=== PATIENT | male | born 1955 | race Hispanic/Latino ===

== ENCOUNTER → 2024-04-13 | Outpatient (CLI) | payer OTHER | END | disposition home or self-care (01) | LOC: SHCH 14:15 | PROVIDERS: ATTEND Student in an Organized Health Care Education/Training Program | DX: I34.81 Nonrheumatic mitral (valve) annulus calcification (principal); I10 Essential (primary) hypertension | CPT/HCPCS: 93306 ==

== ENCOUNTER → 2024-04-26 | Outpatient (CLI) | payer OTHER ==
[~2024-04-26] MED LIST: PERFLUTREN PROTEIN-A MICROSPHR 0.22 MG/ML VIAL IV ONE
== END | disposition home or self-care (01) ==
LOC: RAH 12:04
PROVIDERS: ATTEND Student in an Organized Health Care Education/Training Program
DX: R06.00 Dyspnea, unspecified (principal)
CPT/HCPCS: C8924; Q9956

== ENCOUNTER 2025-03-06 20:15 | Inpatient (IN) | payer OTHER ==
[~2025-03-06] VITALS: Ht 177.8 cm; Wt 107.6 kg
[~2025-03-06 20:15] MED LIST changes: +ASCO100031 PO; +ASPI-1197 PO; +ATOR20TA65 PO; +EMPA10TA PO; +HUMLIS7525 SQ; +MAGN250T10 PO; +METO25TA3 PO; -PERFLUTREN PROTEIN-A MICROSPHR 0.22 MG/ML VIAL IV ONE; +SACU1TAB PO; +THEO400T3 PO
[2025-03-06 20:32] LABS: BASOPHILS # (AUTO) 0.06 K/uL (0.00-0.20); BASOPHILS % (AUTO) 0.6 % (0.0-5.0); EOSINOPHILS # (AUTO) 0.26 K/uL (0.00-0.70); EOSINOPHILS % (AUTO) 2.6 % (0.0-8.0); HEMATOCRIT 41.6 % (42-54); IMMATURE GRANULOCYTE ABSOLUTE 0.04 K/uL (0-1); LYMPHOCYTES # (AUTO) 1.9 K/uL (1.0-4.8); LYMPHOCYTES % (AUTO) 18.4 % (21.0-51.0); MEAN CORPUSCULAR HEMOGLOBIN 29.2 pg (27.0-33.0); MEAN CORPUSCULAR HGB CONC 34.6 g/dL (32.0-36.0); MEAN CORPUSCULAR VOLUME 84.4 fL (79-99); MONOCYTES # (AUTO) 0.8 K/uL (0.1-1.0); MONOCYTES % (AUTO) 7.4 % (3.0-13.0); NEUTROPHILS # (AUTO) 7.1 K/uL (1.8-7.7); NEUTROPHILS % (AUTO) 70.6 % (40.0-77.0); PLATELET COUNT (AUTO) 178 K/uL (130-400); RED BLOOD CELL COUNT(AUTO) 4.93 MIL/uL (4.50-6.20); WHITE BLOOD COUNT (AUTO) 10.1 K/uL (4.8-10.8)
[2025-03-06 20:44] LABS: CREATININE 1.7 mg/dL (0.5-1.3); POTASSIUM 4.7 mmol/L (3.5-5.1)
[2025-03-06 20:53] LABS: INR 1.01 (0.85-1.15); PROTHROMBIN TIME 10.7 SEC (9.6-11.6)
[2025-03-06 20:54] LABS: PARTIAL THROMBOPLASTIN TIME 25.2 SEC (26.3-35.5)
--- NOTE | 2025-03-06 21:08 | HMCIMG ---
CHEST 1VW HISTORY: Chest pain COMPARISON: 03/05/2025 FINDINGS: A frontal projection of the chest was obtained. Mild bilateral pulmonary infiltrates are seen may be related to mild pulmonary vascular congestion with possible superimposed pneumonitis. Poststernotomy changes are seen. The heart is enlarged. Degenerative changes of the thoracolumbar spine are present. All the lines and tubes are again seen in place. Pacemaker is seen entering from the left. No fracture is seen LEFT clavicle. IMPRESSION: 1. Mild bilateral pulmonary infiltrates are seen may be related to mild pulmonary vascular congestion with possible superimposed pneumonitis.
--- NOTE | 2025-03-06 21:09 | HMCIMG ---
CT HEAD/BRAIN W/O CONTRAST HISTORY: Dizziness COMPARISON: None TECHNIQUE: Multiple sequential axial images of the head were obtained from the base of the skull through vertex. Patient was not given contrast through intravenous route. FINDINGS: The ventricles and extraventricular CSF spaces are nondilated for patient's age. There is no midline shift, mass effect or herniation. No acute intracranial bleed is seen. Visualized portion of the paranasal sinuses are grossly within normal limits. IMPRESSION: 1. No acute intracranial bleed is seen. CT was performed with one or more following dose reduction techniques: automated exposure control, adjustment of the mA and kv according to patient's size, or use of a iterative reconstruction technique.
[2025-03-06 21:18] LABS: B-TYPE NATRIURETIC PEPTIDE 693 pg/mL (0-100)
--- NOTE | 2025-03-06 21:30 | NUR ---
REPORT GIVEN TO BAN BENITO
--- NOTE | 2025-03-06 21:58 | ERN ---
ED Note History of Present Illness Stated Complaint: C/O SOB,CP, DIZZINESS,HEADACHE, COUGH,BODYACHES Chief Complaint: Shortness of Breath Time Seen by MD: 20:19 Time Seen by Midlevel: 20:19 Dictation: The patient is a 69-year-old male with a history of CAD, ischemic cardiomyopathy, CHF, hyperlipidemia, hypertension, CABG who presents to the emergency department with complaints of chest pain, shortness of breath, dizziness onset today. Patient reports pain is intermediate and worsened with exertion. Patient reports pressure-like pain lasting about 10-15 minutes. Patient reports nonproductive cough but denies any fevers, sore throat or nasal congestion. Allergies: Coded Allergies: No Known Allergies (Verified Allergy, Unknown, 04/26/24) Home Meds Active Scripts Metoprolol Succinate (Toprol Xl) 25 Mg Tab.er.24h, 25 MG PO DAILY, #30 TAB Prov:ROSIO RUSHING MD 02/27/25 Reported Medications Sacubitril/Valsartan (Entresto 24 mg-26 mg Tablet) 24 Mg-26 Mg Tablet, 1 EACH PO BID, TAB 03/05/25 Magnesium Oxide (Magnesium) 250 Mg Tablet, 250 MG PO DAILY, TAB 11/22/24 Ascorbic Acid (Vitamin C) 1,000 Mg Tablet, 1000 MG PO DAILY, TAB 11/22/24 Aspirin (Aspirin) 81 Mg Tab.chew, 81 MG PO DAILY, TAB.CHEW 11/22/24 Empagliflozin (Jardiance) 10 Mg Tablet, 10 MG PO DAILY, TAB 11/22/24 Theophylline Anhydrous (Theophylline) 400 Mg Tablet.er, 400 MG PO DAILY, TAB 11/22/24 Atorvastatin Calcium (Atorvastatin Calcium) 20 Mg Tablet, 20 MG PO HS, TAB 11/22/24 Insulin NPL/Insulin Lispro (Humalog Mix 75/25) 100 Unit/Ml (75-25) Inj, 40 UNITS SQ BID, ML 11/22/24 Discontinued Reported Medications Metoprolol Succinate (Metoprolol Succinate) 25 Mg Tab.er.24h, 1 TAB PO DAILY 03/05/25 Sertraline HCl (Sertraline HCl) 25 Mg Tablet, 1 TAB PO DAILY for 30 Days, #30 TAB 0 Refills 02/21/25 Duloxetine HCl (Duloxetine HCl) 30 Mg Capsule.dr, 1 CAP PO HS for 30 Days, #30 CAP 0 Refills 02/21/25 Levocetirizine Dihydrochloride (Levocetirizine Dihydrochloride) 5 Mg Tablet, 1 TAB PO HS for 30 Days, #30 TAB 0 Refills 02/21/25 Clopidogrel Bisulfate (Clopidogrel) 75 Mg Tablet, 75 MG PO DAILY, TAB 11/22/24 Omeprazole (Omeprazole) 20 Mg Tab.rap.dr, 20 MG PO BID 11/22/24 Sacubitril/Valsartan (Entresto 97 mg-103 mg Tablet) 97 Mg-103 Mg Tablet, 1 TAB PO BID for 30 Days, #60 TAB 0 Refills 11/22/24 Spironolactone (Spironolactone) 25 Mg Tablet, 1 TAB PO DAILY for 30 Days, #30 TAB 0 Refills 02/21/25 Metolazone (Metolazone) 2.5 Mg Tablet, 1 TAB PO QMOWEFR for 30 Days, #30 TAB 0 Refills 02/21/25 Bumetanide (Bumex) 1 Mg Tab, 1 MG PO BID, TAB 01/26/25 Celecoxib (Celecoxib) 200 Mg Capsule, 1 TAB PO BID 01/01/25 Carvedilol (Carvedilol) 25 Mg Tablet, 1 TAB PO BID 01/01/25 Past Medical History Past Medical History: Diabetes-Type II, High Cholesterol, Heart Disease, Hypertension, Other Surgical History: CABG, Other Surgical History Other: CARDIAC STENTS Family History: Negative RN Note Reviewed/Agreed w/PFSH: Yes Review of System Dictation Constitutional: Negative for fever,chills, and weight loss Eyes: Negative for injury, pain,redness, and discharge ENT: Negative for injury,pain or swelling Cardiovascular: Negative for palpitations, and edema positive for chest pain Respiratory: Negative for wheezing, positive for shortness of breath, cough Abdomen/GI: Negative for abdominal pain, nausea, vomiting, diarrhea, and constipation Back: Negative for injury and pain : Negative for injury, bleeding and discharge MS/Extremity: Negative for injury and deformity Skin: Negative for rash, and discoloration Neuro: Negative for headache, weakness, numbness, tingling, and seizure positive for dizziness Psych: Negative for suicide ideation, homicidal ideation, and hallucinations Initial Vital Sign VS Vital Signs Date Time Temp Pulse Resp B/P (MAP) Pulse Ox O2 Delivery O2 Flow Rate FiO2 03/06/25 20:17 97.0 80 20 118/71 97 Room Air 03/06/25 20:35 0 21 Physical Exam Dictation Vital Signs reviewed General Appearance: Alert, oriented x 3, no acute distress, well developed, nourished. Head and Face: non-traumatic. Eyes: PERRL, pink conjunctivas, eyelid no trauma, anterior chamber with arcus senilis. Ears: Pinnas intact and no signs of trauma or erythema ear canals clear and no discharge TM no erythema Nose: No discharge, no bleeding. Oropharynx: Mouth normal, tongue pink. pharynx clear,no erythema, tonsils no exudates, no abscesses noted, mucous membrane moist Neck: Supple, non-tender, no thyromegaly, no masses, no JVD, no bruits Breast:Deferred Chest:No tenderness, no crepitus, no paradoxical movement, no retractions Lungs:Clear, well-ventilated, symmetric, no rales, no wheezing, no rhonchi, no stridor, good breath sounds bilaterally Heart: Regular rate, regular rhythm, no murmur, no gallops Vascular: no peripheral edema, Abdomen: Soft, positive bowel sounds, nondistended, no guarding, nontender, no rebound, no masses no hepatomegaly, no splenomegaly, no Burrell's sign, no hernias. Rectal: Deferred Genital: Deferred Neurological: Normal speech, motor function intact, sensory function intact , upper extremities equal in strength, lower extremities equal in strength. Musculoskeletal: Neck nontender, full range of motion, back nontender, full range of motion, Extremities: nontender, full range of motion Skin: Color pink, dry, no turgor, no rash, no lacerations, no abrasions, no contusions. Lymphatic: Deferred Results (Laboratory/Radiology) Laboratory/Radiology Laboratory Tests Test 03/06/25 20:26 White Blood Count 10.1 K/uL (4.8-10.8) Red Blood Count 4.93 MIL/uL (4.50-6.20) Hemoglobin 14.4 g/dL (14.0-18.0) Hematocrit 41.6 % (42-54) L Mean Corpuscular Volume 84.4 fL (79-99) Mean Corpuscular Hemoglobin 29.2 pg (27.0-33.0) Mean Corpuscular Hemoglobin Concent 34.6 g/dL (32.0-36.0) Red Cell Distribution Width 16.0 % (11.0-15.5) H Platelet Count 178 K/uL (130-400) Mean Platelet Volume 10.0 fL (7.5-10.5) Immature Granulocyte % (Auto) 0.4 % (0-1) Neutrophils (%) (Auto) 70.6 % (40.0-77.0) Lymphocytes (%) (Auto) 18.4 % (21.0-51.0) L Monocytes (%) (Auto) 7.4 % (3.0-13.0) Eosinophils (%) (Auto) 2.6 % (0.0-8.0) Basophils (%) (Auto) 0.6 % (0.0-5.0) Neutrophils # (Auto) 7.1 K/uL (1.8-7.7) Lymphocytes # (Auto) 1.9 K/uL (1.0-4.8) Monocytes # (Auto) 0.8 K/uL (0.1-1.0) Eosinophils # (Auto) 0.26 K/uL (0.00-0.70) Basophils # (Auto) 0.06 K/uL (0.00-0.20) Absolute Immature Granulocyte (auto 0.04 K/uL (0-1) Nucleated Red Blood Cells 0.0 % (0.0-0.19) Prothrombin Time 10.7 SEC (9.6-11.6) Prothromb Time International Ratio 1.01 (0.85-1.15) Activated Partial Thromboplast Time 25.2 SEC (26.3-35.5) L Sodium Level 137 mmol/L (136-145) Potassium Level 4.7 mmol/L (3.5-5.1) Chloride Level 104 mmol/L (101-111) Carbon Dioxide Level 21 mmol/L (21-32) Blood Urea Nitrogen 47 mg/dL (7-18) H Creatinine 1.7 mg/dL (0.5-1.3) H Glomerular Filtration Rate Calc 43 mL/min (>90) Random Glucose 174 mg/dL (70-105) H Total Calcium 8.3 mg/dL (8.5-10.1) L Total Creatine Kinase 126 U/L (21-232) # Troponin I High Sensitivity 41 ng/L (4-75) B-Type Natriuretic Peptide 693 pg/mL (0-100) H REASON: CHEST PAIN ORDERING PHYSICIAN: MAXIME FUNEZ MD PROCEDURE: CXR1VW - CHEST 1VW CHEST 1VW HISTORY: Chest pain COMPARISON: 03/05/2025 FINDINGS: A frontal projection of the chest was obtained. Mild bilateral pulmonary infiltrates are seen may be related to mild pulmonary vascular congestion with possible superimposed pneumonitis. Poststernotomy changes are seen. The heart is enlarged. Degenerative changes of the thoracolumbar spine are present. All the lines and tubes are again seen in place. Pacemaker is seen entering from the left. No fracture is seen LEFT clavicle. IMPRESSION: 1. Mild bilateral pulmonary infiltrates are seen may be related to mild pulmonary vascular congestion with possible superimposed pneumonitis. REASON: dizzy ORDERING PHYSICIAN: ANGELIA RIOS PROCEDURE: HEAD WO - CT HEAD/BRAIN W/O CONTRAST CT HEAD/BRAIN W/O CONTRAST HISTORY: Dizziness COMPARISON: None TECHNIQUE: Multiple sequential axial images of the head were obtained from the base of the skull through vertex. Patient was not given contrast through intravenous route. FINDINGS: The ventricles and extraventricular CSF spaces are nondilated for patient's age. There is no midline shift, mass effect or herniation. No acute intracranial bleed is seen. Visualized portion of the paranasal sinuses are grossly within normal limits. IMPRESSION: 1. No acute intracranial bleed is seen. CT was performed with one or more following dose reduction techniques: automated exposure control, adjustment of the mA and kv according to patient's size, or use of a iterative reconstruction technique. Labs Reviewed?: Yes EKG: (+) rhythm (Sinus rhythm) EKG Comment: Date:03/06/2025 Time:2014 Ventricular rate:73 NE interval:277 QRS duration:131 QT/QTc:433 EKG interpretation: Sinus rhythm, prolonged NE, left bundle-branch block (compared to previous ekg similar) Reviewed by ED Attending STEMI ED Course ED Course Orders Procedure Category Date Status Time Vital Signs Per CPOE 03/06/25 Transmitted Routine 20:17 B-Type Natriuretic LAB 03/06/25 Complete Peptide 20:17 Chest 1vw RAD 03/06/25 Resulted 20:17 12 Lead Ekg Tracing- EKG 03/06/25 Logged Technical 20:17 Oxygen By Nc/Pulse Ox CPOE 03/06/25 Transmitted 20:17 Maintain Iv CPOE 03/06/25 Transmitted 20:17 Iv Insertion CPOE 03/06/25 Transmitted 20:17 Cardiac Monitoring CPOE 03/06/25 Transmitted 20:17 Pulse Oximetry With CPOE 03/06/25 Transmitted Vs And Prn 20:17 Cbc With Differential LAB 03/06/25 Complete 20:17 Activity: Br W/Brp CPOE 03/06/25 Transmitted With Assist 20:17 Creatine Kinase, Total LAB 03/06/25 Complete 20:17 Troponin I High LAB 03/06/25 Complete Sensitivity 20:17 Urinalysis Profile LAB 03/06/25 Logged 20:17 Basic Metabolic Panel LAB 03/06/25 Complete 20:17 Ct Head/Brain W/O CT 03/06/25 Resulted Contrast 20:40 Pt And Ptt LAB 03/06/25 Complete 20:40 Aspirin 81mg Chew Tab PHA 03/06/25 Complete (Aspirin 81mg Chew 21:30 Nitroglycerin 1gm PHA 03/06/25 Complete Oint (Nitroglycerin 1g 21:30 Troponin I High LAB 03/06/25 In Process Sensitivity 21:46 Edm Admit Bridge Order ADM 03/06/25 Verified 22:20 Current Medications Medications (Trade) Dose Ordered Sig/Calin Route PRN Reason Start Time Stop Time Status Last Admin Dose Admin Aspirin (Aspirin 81mg Chew Tab) 81 mg ONCE ONCE PO 03/06/25 21:30 03/06/25 21:31 DC Nitroglycerin (Nitroglycerin 1gm Oint) 0.5 inch ONCE ONCE TD 03/06/25 21:30 03/06/25 21:31 DC Vital Signs Date Time Temp Pulse Resp B/P (MAP) Pulse Ox O2 Delivery O2 Flow Rate FiO2 03/06/25 20:35 97.9 82 20 122/72 97 Room Air* 0 21 03/06/25 20:17 97.0 80 20 118/71 97 Room Air HEART Score Response (Comments) Value History: High suspicion (+2) 2 EKG: Significant ST depression 2 Age: > 65yrs (+2) 2 Risk Factors: 3+ risk factors (+2) 2 Initial Troponin: Normal limit (0) 0 Total 8 Medical Decision Making MDM MDM: The patient is a 69-year-old male with a history of CAD, ischemic cardiomyopathy, CHF, hyperlipidemia, hypertension, CABG who presents to the emergency department with complaints of chest pain, shortness of breath, dizziness onset today. Patient reports pain is intermediate and worsened with exertion. Patient reports pressure-like pain lasting about 10-15 minutes. Patient reports nonproductive cough but denies any fevers, sore throat or nasal congestion. CBC showed no leukocytosis, no anemia, chemistry showed no electrolyte imbalance, creatinine of 1.7, similar to from previous admissions, BNP of 693, troponin of 41, CT head showed, chest x-ray showed mild infiltrates. Due to patient's high-risk extensive history who would admit for further evaluation. Differential diagnosis: CAD, electrolyte imbalance, pneumonia, pneumothorax, CHF exacerbation Comorbidities: Ischemic cardiomyopathy, CAD, hyperlipidemia, hypertension Tests considered and not ordered secondary to shared decision making include: no ne Previous outside records reviewed: none Risk of complication and/or morbidity or mortality of patient management: The patient meets criteria for admission. Need for emergency major/minor surgery: No There are no social concerns with this patient. I independently interpreted the tests I ordered (labs, urinalysis, etc.). I discussed the case with the hospitalist for admission. Dione who accepts admission I discussed the case with the following specialists: none. Historian: pateint. I independently interpreted imaging studies and EKGs that I ordered (US, CT, XR, EKG, etc.). External chart review: none. Medical management and examination interpretation discussions were had by me with other qualified healthcare professionals as indicated for the patient's care. DX & DISP Disposition: Inpatient Decision to Admit Date: Mar 06, 2025 Decision to Admit Time: 22:24 Departure Impression: Primary Impression: Chest pain with high risk for cardiac etiology Additional Impressions: Elevated brain natriuretic peptide (BNP) level, Dyspnea on exertion, Dizziness Condition: Stable Referrals: CONSUELO ONOFRE MD (PCP) I have reviewed the case, and I agree with, Diagnosis and Plan ANGELIA RIOS Mar 06, 2025 21:58
--- NOTE | 2025-03-06 22:20 | HP ---
[facility] HISTORY [facility] PHYSICAL Date of Service: Mar 06, 2025 Time of Service: 22:20 PCP: Seth Vo MD HISTORY OF PRESENT ILLNESS: This is a 69-year-old male with past medical history of Diabetes,CHF, Chronic obstructive pulmonary disease, obstructive sleep apnea on CPAP at home, coronary artery disease and hyperlipidemia who presents to the ED for complaints of right sided chest pain, shortness of breaths and dizziness which started today. Patient reports he has been having this symptoms since weak and and has been getting worse today. Patient described pain as sharp goes three back and radiates up to his neck similar when he had attack he said and triggers with minimal exertion. Patient reports gets very short of breath just walking on short distances and gets dizzy easily.Patienty states chest pain occurs every time he walks in short distances and had to take a short rest in between activity because of chest pain and dizziness which usually lasted for 15 minutes. Patient reports having dry cough that has been ongoing for this week. 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 Patient reports he has multiple left thoracentesis before. Patient has an echocardiogram done on November 22, 2024 showed severe global hypokinesis of the left ventricle and systolic function is severely depressed estimated EF of 15-20% grade 3 diastolic dysfunction. Seen and examined patient in the ER awake alert and coherent, appears comfortable. Patient denies fever, chills, palpitation, nausea, vomiting, edema and abdominal pain. Latest vital signs temperature 98.1, heart rate 85, blood pressure 101/55 saturation 97% on room air. Labs: CBC unremarkable. BUN 47, creatinine 1.7, GFR 43, glucose 174, total calcium 8.3 troponin 41 [address] head without contrast result is negative. Chest x-ray result revealed mild bilateral pulmonary infiltrates are seen may be related to mild pulmonary vascular congestion with possible superimposed pneumonitis. While in the ER patient received aspirin and nitroglycerin. We will admit patient for further medical management. REVIEW OF SYSTEMS CONSTITUTIONAL: Denies fevers, chills, or night sweats. No unintentional weight loss reported. NEUROLOGICAL: Denies headache, amaurosis fugax, motor weakness, sensory deficit, vertigo/spinning sensation, gait abnormalities, or tremors. ENT: No hearing loss, otalgia, otorrhea, rhinitis, rhinorrhea, hoarseness, or sore throat. CARDIOVASCULAR: Complained of right-sided chest pain and dyspnea on exertion Denies orthopnea, paroxysmal nocturnal dyspnea, palpitations, life-threatening arrhythmias, claudication. PULMONARY: Complained of shortness of breaths and dry cough Denies hemoptysis, pleuritic chest pain. SLEEP: Denies morning headaches, daytime somnolence or napping. Denies difficulty falling asleep, staying asleep, waking from sleep. Denies knowledge of snoring. GASTROINTESTINAL: Denies any type of dysphagia to either liquids or solids. Denies nausea, vomiting, pyrosis, early satiety, abdominal pain, diarrhea, constipation, or changes in stool consistency or caliber. Denies coffee-ground emesis, hematemesis, hematochezia, or melanotic stools. GENITOURINARY: Denies frequency, urgency, nocturia, hematuria or incontinence (Storage/Irritative symptoms.) Low urinary stream, straining to void, urinary intermittency or hesitancy, splitting of the voiding stream, terminal dribbling. ENDOCRINOLOGIC: Denies polyuria, polydipsia, polyphagia or heat/cold intolerances. HEMATOLOGIC: Denies thrombophilia/previous clots, or coagulopathy/bleeding disorders. ONCOLOGIC: Denies personal history of malignancy. DERMATOLOGIC: Denies rashes or pruritus. PSYCHIATRIC: Denies any suicidal or homicidal ideation. Denies hallucinations. PAST MEDICAL HISTORY: [ Diabetes,CHF, Chronic obstructive pulmonary disease, obstructive sleep apnea on CPAP at home, coronary artery disease and hyperlipidemia ] PAST SURGICAL HISTORY: [ Cardiac stent x4 CABG x3, AICD, internal carotid endarterectomy, cholecystectomy and hemorrhoidectomy ] PAST SOCIAL HISTORY: [ Patient lives with . Patient denies alcohol cigarette and recreational drug use ] FAMILY HISTORY: [ Hypertension, cancer and diabetes] Coded Allergies: No Known Allergies (Verified Allergy, Unknown, 04/26/24) PHYSICAL EXAM GENERAL APPEARANCE: The patient is awake, alert, and oriented, in no acute cardiopulmonary distress. NEUROLOGICAL: Cranial nerves II-XII grossly intact. Motor is 5/5 in bilateral upper and lower extremities proximal to distal. No sensory deficits. HEENT: Face is symmetric. Pupils are equal and reactive. Extraocular movements are intact. NECK: Supple. No JVD. No thyromegaly. No submental, submandibular, pre- /postauricular, occipital or supraclavicular lymphadenopathy. CHEST: Normal chest expansion. No Telemetry. LUNGS: Crackles on the lower bases more on left lung per auscultation CARDIOVASCULAR: Regular. S1 and S2 normal. No appreciable rubs, murmurs or gallops. ABDOMEN: Soft, nontender, and nondistended. There is no rebound, voluntary guarding, or rigidity. : Deferred. No Jiménez. EXTREMITIES: Non-edematous and not cyanotic. No clubbing. Good capillary refill. SKIN: No skin breakdown. Vital Sign (Last 24 Hours) 03/06/25 20:35 Temp 97.9 Pulse 82 Resp 20 B/P (MAP) 122/72 Pulse Ox 97 O2 Delivery Room Air* O2 Flow Rate 0 FiO2 21 LABS: Laboratory: Test 03/06/25 20:26 Range/Units White Blood Count 10.1 4.8-10.8 K/uL Red Blood Count 4.93 4.50-6.20 MIL/uL Hemoglobin 14.4 14.0-18.0 g/dL Hematocrit 41.6 L 42-54 % Mean Corpuscular Volume 84.4 79-99 fL Mean Corpuscular Hemoglobin 29.2 27.0-33.0 pg Mean Corpuscular Hemoglobin Concent 34.6 32.0-36.0 g/dL Red Cell Distribution Width 16.0 H 11.0-15.5 % Platelet Count 178 130-400 K/uL Mean Platelet Volume 10.0 7.5-10.5 fL Immature Granulocyte % (Auto) 0.4 0-1 % Neutrophils (%) (Auto) 70.6 40.0-77.0 % Lymphocytes (%) (Auto) 18.4 L 21.0-51.0 % Monocytes (%) (Auto) 7.4 3.0-13.0 % Eosinophils (%) (Auto) 2.6 0.0-8.0 % Basophils (%) (Auto) 0.6 0.0-5.0 % Neutrophils # (Auto) 7.1 1.8-7.7 K/uL Lymphocytes # (Auto) 1.9 1.0-4.8 K/uL Monocytes # (Auto) 0.8 0.1-1.0 K/uL Eosinophils # (Auto) 0.26 0.00-0.70 K/uL Basophils # (Auto) 0.06 0.00-0.20 K/uL Absolute Immature Granulocyte (auto 0.04 0-1 K/uL Nucleated Red Blood Cells 0.0 0.0-0.19 % Prothrombin Time 10.7 9.6-11.6 SEC Prothromb Time International Ratio 1.01 0.85-1.15 Activated Partial Thromboplast Time 25.2 L 26.3-35.5 SEC Sodium Level 137 136-145 mmol/L Potassium Level 4.7 3.5-5.1 mmol/L Chloride Level 104 101-111 mmol/L Carbon Dioxide Level 21 21-32 mmol/L Blood Urea Nitrogen 47 H 7-18 mg/dL Creatinine 1.7 H 0.5-1.3 mg/dL Glomerular Filtration Rate Calc 43 >90 mL/min Random Glucose 174 H 70-105 mg/dL Total Calcium 8.3 L 8.5-10.1 mg/dL Total Creatine Kinase 126 # 21-232 U/L Troponin I High Sensitivity 41 4-75 ng/L B-Type Natriuretic Peptide 693 H 0-100 pg/mL DIAGNOSTICS / RADIOLOGY: [ ] ASSESSMENT: Chest pain rule out ACS POA 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 Chronic renal insufficiency POA Coronary artery disease with CABG x3 and cardiac stent x4 POA AICD status POA Uncontrolled diabetes POA Morbid obesity POA Hypertension POA Hyperlipidemia POA Obstructive sleep apnea on CPAP at home POA PLAN: We will admit patient in medical telemetry We will start on heart healthy diet Restart home dose aspirin, atorvastatin and metoprolol We will start furosemide 20 mg IV daily x2 doses We will start on Famotidine 20 mg p.o. daily for GI prophylaxis We will replace electrolytes as needed per protocol We will start on insulin sliding scale AC & HS with hypoglycemia protocol We will add prn medication for fever,pain,cough, nausea, vomiting and chest pain We will reconcile home meds once medlist available We will trend troponin q.6 x3 We will follow up urinalysis result We will seek Cardiology consultation We will request labs in am Further orders to follow depending on above results Case discussed with attending physician and came up with above treatment and plan of care. ADVANCED CARE PLANNING 1. Which of the following were discussed? Hospice Care - No Therapeutic options - Yes Advance Directives - No Other discussions - 2. Discussed with who? Patient 3. Voluntary nature of this service was explained to the patient? Yes 4. Amount of time spent - _24 5. Reviewed by Physician? (if this service was performed by NPP) Yes Patient seen and examined by me. Agree with note by [employer] AD[employer] SEE ADDITIONAL ORDERS PER CHART DISCUSSED WITH NURSING STAFF JEIMY [facility] Mar 06, 2025 22:20
--- NOTE | 2025-03-06 22:21 | NUR ---
ASSUMED PT CARE
[2025-03-06] MEDS: NITROGLYCERIN 1GM OINT 1 INCH/1GM TD ONE (23:00)
[2025-03-06] MEDS: ASPIRIN 81MG CHEW TAB PO ONE (23:00)
--- NOTE | 2025-03-06 23:25 | NUR ---
HOME MEDS NOT AVAIL AT BEDSIDE
[2025-03-07] VITALS (23 sets, daily range): BP systolic 103–156; BP diastolic 30–121; PULSE 54–81; RESP 12–26; TEMP 96.3–98.1; O2SAT 97–98
[2025-03-07] MEDS ORDERED: PoTASSium chloRIDE 20MEQ/100ML 100 ML IV PRN
[2025-03-07] MEDS ORDERED: PoTASSium chl 10% ELIXIR 20MEQ 20 MEQ/15 ML UDCUP PO PRN
[2025-03-07] MEDS ORDERED: MAGNESIUM 2GM PREMIX 50ML 50 ML IV PRN
[2025-03-07] MEDS ORDERED: PoTASSium chloRIDE 20MEQ ER 20 MEQ ERTAB PO PRN
[2025-03-07] MEDS ORDERED: ondanSETRON 4MG INJ IV PRN
[2025-03-07] MEDS ORDERED: NITROGLYCERIN 0.4 MG SL TAB SL PRN
[2025-03-07] MEDS ORDERED: hydrALAZine 20MG/ML VIAL IV PRN
[2025-03-07] MEDS ORDERED: BENZ200C53 PO (01:28)
[2025-03-07] MEDS ORDERED: OMEP20CA12 PO (01:28)
[2025-03-07] MEDS ORDERED: LEVO5TAB13 PO (01:28)
[2025-03-07] MEDS ORDERED: CLOP75TA32 PO (01:28)
[2025-03-07] MEDS ORDERED: INSU100I13 SQ (01:28)
[2025-03-07 06:05] LABS: BASOPHILS # (AUTO) 0.07 K/uL (0.00-0.20); BASOPHILS % (AUTO) 0.8 % (0.0-5.0); EOSINOPHILS # (AUTO) 0.35 K/uL (0.00-0.70); EOSINOPHILS % (AUTO) 4.2 % (0.0-8.0); HEMATOCRIT 39.6 % (42-54); IMMATURE GRANULOCYTE ABSOLUTE 0.03 K/uL (0-1); LYMPHOCYTES # (AUTO) 2.5 K/uL (1.0-4.8); LYMPHOCYTES % (AUTO) 29.6 % (21.0-51.0); MEAN CORPUSCULAR HEMOGLOBIN 29.1 pg (27.0-33.0); MEAN CORPUSCULAR HGB CONC 34.3 g/dL (32.0-36.0); MEAN CORPUSCULAR VOLUME 84.6 fL (79-99); MONOCYTES # (AUTO) 0.7 K/uL (0.1-1.0); MONOCYTES % (AUTO) 8.4 % (3.0-13.0); NEUTROPHILS # (AUTO) 4.8 K/uL (1.8-7.7); NEUTROPHILS % (AUTO) 56.6 % (40.0-77.0); PLATELET COUNT (AUTO) 161 K/uL (130-400); RED BLOOD CELL COUNT(AUTO) 4.68 MIL/uL (4.50-6.20); RED CELL DISTRIBUTION WIDTH 16.2 % (11.0-15.5); WHITE BLOOD COUNT (AUTO) 8.4 K/uL (4.8-10.8)
[2025-03-07 06:33] LABS: ALBUMIN 3.2 g/dL (3.5-5.0); BILIRUBIN,TOTAL 0.5 mg/dL (0.2-1.0); CREATININE 1.8 mg/dL (0.5-1.3); POTASSIUM 4.7 mmol/L (3.5-5.1); TOTAL PROTEIN, SERUM 6.8 g/dL (6.0-8.3)
[2025-03-07] MEDS: INSULIN humuLIN R 100 UNIT/ML 3ML SQ SCH (06:49)
[2025-03-07] MEDS ORDERED: LIDOCAINE HCL 400MG/20ML VIAL ONE (07:10)
[2025-03-07] MEDS ORDERED: HEParin-NS 1,000 UNIT/500 ML 1,000 ML IV ONE (07:10)
[2025-03-07] MEDS ORDERED: IOHEXOL 350 MG/ML 100ML INFUS..BTL IV ONE ×3 (07:10→10:32)
--- NOTE | 2025-03-07 07:10 | EKG ---
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1955 Requested By: MAXIME FUNEZ Order Number: [id number] Reading MD: Elisabet Escobedo Measurements Intervals [place] Rate: 73 P: 19 NM: 277 QRS: -42 QRSD: 131 T: 192 QT: 393 QTc: 433 Interpretive Statements Sinus rhythm Prolonged NM interval Left bundle branch block Compared to ECG 03/05/2025 10:25:08 First degree AV block now present Left bundle-branch block now present Ventricular premature complex(es) no longer present Intraventricular conduction delay no longer present ST (T wave) deviation no longer present T-wave abnormality no longer present Possible ischemia no longer present Electronically Signed On 03-08-2025 15:05:39 CDT by Elisabet Escobedo Please click the below link to view image of tracing.
[2025-03-07] MEDS ORDERED: NITROGLYCERIN 50MG VIAL ONE (07:11)
--- NOTE | 2025-03-07 07:11 | EKG ---
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
[2025-03-07] MEDS ORDERED: BIVALIRUDIN 250 MG/VIAL IV ONE (07:14)
[2025-03-07] MEDS ORDERED: HEParin 10,000 UNIT/10ML (1,000 UNIT/ML) VIAL ONE ×2 (07:14→08:27)
[2025-03-07] MEDS ORDERED: ATROPINE 1MG SYG IVP ONE (07:14)
[2025-03-07 07:25] LABS: ERYTHROCYTE SEDIMENTATION RATE 15 MM/HR (0-20)
[2025-03-07] MEDS ORDERED: FENTanyl CITRate PF 50 MCG/1 ML 2ML VIAL ONE ×2 (07:41→09:42)
[2025-03-07] MEDS ORDERED: MIDAZOLAM HCL 1 MG/ML 2ML VIAL ONE ×4 (07:42→09:59)
[2025-03-07] MEDS: SACUBITRIL/VALSARTAN 1 EACH TABLET PO SCH (08:02)
[2025-03-07] MEDS: ASPIRIN 81MG CHEW TAB PO SCH (08:02)
[2025-03-07] MEDS: metOPROLol sucCINATE 25 MG TAB.SR.24H PO SCH (08:02)
[2025-03-07] MEDS: FAMOTIDINE 20MG TAB PO SCH (08:02)
[2025-03-07] MEDS ORDERED: HEParin-NS 1,000 UNIT/500 ML 500 ML IV ONE ×2 (08:41→10:15)
--- NOTE | 2025-03-07 08:58 | NUR ---
patient taken to procedure during shift change this morning, per recovery patient will be transferring to 2nd floor.
[2025-03-07] MEDS ORDERED: furoSEMIDE 20MG VIAL IV SCH (10:00)
[2025-03-07] MEDS ORDERED: cloPIDOgrel 300MG TAB ONE (10:12)
[2025-03-07] MEDS ORDERED: ASPIRIN 325MG EC TAB PO ONE (10:12)
--- NOTE | 2025-03-07 11:26 | PRN ---
PROCEDURE REPORT DATE OF PROCEDURE: Mar 07, 2025 CREPE MACHINE OPERATOR: [ Eros gallegos MD] PROCEDURE PERFORMED: Conscious sedation Ultrasound guided right femoral artery access Right iliofemoral angiography Impella mechanical support insertion Left heart catheterization Selective left coronary artery angiogram Shockwave lithotripsy (3 x 12 mm) of the left circ Status post successful Impella supported, IV L, PTCA/PCI of the mid left circumflex (3x26 mm tayler Felch drug-eluting stent, postdilated 3.5 mm) Status post successful Impella supported PTCA/PCI of the mid OM2 (2.25 by 38 mm tayler Felch drug-eluting stent) Perc-Closure device right femoral artery INDICATION: End-stage heart failure/ischemic cardiomyopathy DESCRIPTION OF PROCEDURE: After informed consent was obtained, the patient was prepped and draped in the usual sterile fashion. A 6 [place] Islander arterial sheath was inserted in the right femoral artery using a micropuncture technique and ultrasound guidance with first pass wall puncture. This was performed after fluoroscopic identification of bony landmarks to facilitate a more accurate puncture of the right common femoral artery. The arterial sheath was aspirated and flushed. At this time we deployed to Perclose is in the 2:00 a.m. and 11 o'clock position. We then advanced the Impella sheath into the right common femoral artery which was then aspirated and flushed. We then advanced an 035 wire into the ascending aorta under fluoroscopic guidance. We then used a six [place] Island[place] pigtail catheter which was advanced over the wire into the left ventricle performing left ventricular end-diastolic pressure hemodynamic assessment. We then advanced an Impella 018 wire into the pigtail which was then removed and then we advanced the Impella catheter over the wire into the left ventricle and initiated Impella mechanical support at P 6. A 7 [place] Islander computer hardware developer arterial sheath was placed into the Impella sheath (single access technique). We then advanced a seven [place] Islander XB3.5 guide catheter over the wire and used to selectively engage the left main coronary artery followed by multiple angiographic images. We then advanced [place] within a find cross microcatheter and were met with significant resistance in the mid circ RIVET HOLE PUNCHER. At this point we attempted wire escalation technique using a Fielder XT followed by a Renewable Energy Trader 200 and we are able to traverse across the RIVET HOLE PUNCHER into the OM2 branch. We then advanced the fine cross microcatheter into the distal OM2 and exchanged the Renewable Energy Trader 200 for a supportive wiggle wire. We then removed the fine cross catheter and then we used a Fielder XT within a microcatheter to traverse the mid circ RIVET HOLE PUNCHER. We advanced the microcatheter into the distal circ and then we removed the Fielder XT and place a supportive iron man wire for additional support. We then began with PTCA of the mid proximal and ostial OM2 with a 2 x 15 mm compliant balloon to nominal pressure serially. We then deployed a 2.25 x 38 mm tayler Felch drug-eluting stent with in the mid to distal OM2 to nominal pressures. This is post dilated with a 2.25 x 20 mm noncompliant balloon to 14 SAMINA serially. At this time we then advanced a 3 x 12 mm shockwave balloon within the mid circumflex and performed lithotripsy serially with in the mid and distal segment at four and 60 TM respectively. We then deployed a three by 26 mm tayler Felch drug-eluting stent within the mid to distal circumflex to nominal pressures. This was post dilated with a 3.5 by 20 mm noncompliant balloon to 14 and 16 8 cm respectively. We noted plaque shift with in the OM2 leading to a 80-90% ostial occlusion. At this time we attempted to redirect the Fielder XT into the OM2 to performed kissing balloon inflation but despite significant resistance and the use of an angled super cross microcatheter we are unable to traverse the stent struts. Given excessive contrast and radiation uses issues made to terminate the procedure. We provided a total of 400 mcg of intracoronary nitroglycerin and final angiogram revealed holiness of GALLITO three flow with no dissections or perforations. All wires and catheters removed from the body and remove the Impella mechanical support with a two six [place] Islander Perclose leading to patent hemostasis. Patient tolerated procedure well with no postprocedure complication was transferred to stores laborer holding in stable condition. FLUOROSCOPY TIME: 40.7 min LEFT HEART HEMODYNAMICS: LVEDP 22 mm Hg and no gradient Ao CORONARY ANGIOGRAM: LEFT MAIN: Patent and 0% stenosis. Gives rise to LCx and LAD. LEFT ANTERIOR DESCENDING: Large vessel giving rise to two Diagonal branches. Diffusely calcified with 100% mid RIVET HOLE PUNCHER. There is competitive flow distally via widely patent ALVARES. D1 calcified with 67% ostial proximal stenosis LEFT CIRCUMFLEX: Large, codominant and gives rise to two OM branches. There is 100% calcified mid RIVET HOLE PUNCHER at the OM2 bifurcation. OM2 is large with 100% RIVET HOLE PUNCHER at the ostium. RIGHT CORONARY ARTERY: RCA not study as he anatomy is known from recent angiogram on 01/2025 HEMOSTASIS: Perc-Close in right femoral artery with a patent hemostasis x2 Status post successful Impella supported, IV L, PTCA/PCI of the mid left circumflex (3x26 mm tayler Felch drug-eluting stent, postdilated 3.5 mm) Status post successful Impella supported PTCA/PCI of the mid OM2 (2.25 by 38 mm tayler Felch drug-eluting stent) COMPLICATIONS: None FINDINGS: Normal coronary anatomy severe multivessel CAD/ischemic cardiomyopathy ESTIMATED BLOOD LOSS: 20 cc RECOMMENDATIONS/INSTRUCTIONS: Aggressive risk factor modification. Patient required DAPT (aspirin 81 mg q.day/Plavix 75 mg q.day) at times 6-12 months in addition to high-intensity statin therapy Optimization of GDM T and bedrest for 6 hours post sheath removal We will plan for discharge in the next 24 hours if patient remains stable from the cardiac standpoint CONTRAST DELIVERED TO PATIENT (mL): 300cc EROS Ledesma MD, MD Mar 07, 2025 11:26
[2025-03-07] MEDS ORDERED: DEXTROSE 50%-WATER 50 ML DISP.SYRIN IV PRN ×2 (11:30)
[2025-03-07] MEDS ORDERED: GLUCAGON 1MG KIT 1 MG ML IM PRN ×2 (11:30)
--- NOTE | 2025-03-07 11:45 | NUR ---
STATUS Received pt to room 210 post procedure. Upon arrival, pt AAO, appropriate. Denies chest pain, pressure or palpitations. Denies SOB. Pt on room air. Skin is cool, dry. VS as recorded. SB on tele. Assessment completed/recorded. Pt made aware of bedrest post procedure - voiced understanding. Needed items/call light placed within reach. Side rails up x3. Bed alarm active.
--- NOTE | 2025-03-07 12:00 | NUR ---
PT CARE By way of pt's [place] blood glucose monitor, BS 111.
--- NOTE | 2025-03-07 12:37 | NUR ---
HOME MEDS Pt's spouse at bedside - home medications confirmed with her. Spouse instructed to take meds with her when she leaves as home meds are not to remain at bedside.
--- NOTE | 2025-03-07 12:48 | PN ---
[facility] PROGRESS NOTE Date of Service: Mar 07, 2025 Time of Service: 12:48 SUBJECTIVE: HPI Patient is a 69-year-old male with past medical history of Diabetes,CHF, Chronic obstructive pulmonary disease, obstructive sleep apnea on CPAP at home, coronary artery disease and hyperlipidemia who presents to the ED for complaints of right sided chest pain, shortness of breaths and dizziness which started today. Patient reports he has been having these symptoms since this week and worsened today so he decided to come in for evaluation. Patient described pain as sharp and radiates up to his neck similar to when he had a heart attack. States that it is triggered with minimal exertion. Patient reports that he gets very short of breath and dizzy just walking a short distance. Patient reports having dry cough that has been ongoing for a week. 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 Patient had an echocardiogram done on November 22, 2024 showed severe global hypokinesis of the left ventricle and systolic function is severely depressed estimated EF of 15-20% grade 3 diastolic dysfunction. 03/07/25:Lying in bed at the time of evaluation. Alert, oriented and in no obvious distress. Patient is status post PTCA/PCI of the mid left circumflex and PTCA/PCI of the mid second obtuse marginal branch of the Left Circumflex Coronary Artery by Dr Baldev Escobedo on 03/07/25. Labs: WBC 8.4, Hb 13.6, Hct 39.6 Chem: Sodium 138, Potassium 4.7, BUN 45, Cr 1.8. Continue on Atorvastatin 20mg, Sacubitril/Valsatan 24/26mg, Metoprolol 25mg . Patient requires Aspirin 81mg daily, Plavix 75mg daily for at least 6-12months in addition to high intensity statin. Plan for discharge in 24 hours if patient remains hemodynamically stable. REVIEW OF SYSTEMS CONSTITUTIONAL: Denies fevers, chills, or night sweats. No unintentional weight loss reported. NEUROLOGICAL: Denies headache, amaurosis fugax, motor weakness, sensory deficit, vertigo/spinning sensation, gait abnormalities, or tremors. ENT: No hearing loss, otalgia, otorrhea, rhinitis, rhinorrhea, hoarseness, or sore throat. CARDIOVASCULAR: right-sided chest pain and dyspnea on exertion Denies orthopnea, paroxysmal nocturnal dyspnea, palpitations, life-threatening arrhythmias, claudication. PULMONARY: shortness of breaths and dry cough Denies hemoptysis, pleuritic chest pain. SLEEP: Denies morning headaches, daytime somnolence or napping. Denies difficulty falling asleep, staying asleep, waking from sleep. Denies knowledge of snoring. GASTROINTESTINAL: Denies any type of dysphagia to either liquids or solids. Denies nausea, vomiting, pyrosis, early satiety, abdominal pain, diarrhea, constipation, or changes in stool consistency or caliber. Denies coffee-ground emesis, hematemesis, hematochezia, or melanotic stools. GENITOURINARY: Denies frequency, urgency, nocturia, hematuria or incontinence (Storage/Irritative symptoms.) Low urinary stream, straining to void, urinary intermittency or hesitancy, splitting of the voiding stream, terminal dribbling. ENDOCRINOLOGIC: Denies polyuria, polydipsia, polyphagia or heat/cold intolerances. HEMATOLOGIC: Denies thrombophilia/previous clots, or coagulopathy/bleeding disorders. ONCOLOGIC: Denies personal history of malignancy. DERMATOLOGIC: Denies rashes or pruritus. PSYCHIATRIC: Denies any suicidal or homicidal ideation. Denies hallucinations. PHYSICAL EXAM GENERAL APPEARANCE: The patient is awake, alert, and oriented, in no acute cardiopulmonary distress. NEUROLOGICAL: Cranial nerves II-XII grossly intact. Motor is 5/5 in bilateral upper and lower extremities proximal to distal. No sensory deficits. HEENT: Face is symmetric. Pupils are equal and reactive. Extraocular movements are intact. NECK: Supple. No JVD. No thyromegaly. No submental, submandibular, pre- /postauricular, occipital or supraclavicular lymphadenopathy. CHEST: Normal chest expansion. No Telemetry. LUNGS: Crackles on the lower bases more on left lung per auscultation CARDIOVASCULAR: Regular. S1 and S2 normal. No appreciable rubs, murmurs or gallops. ABDOMEN: Soft, nontender, and nondistended. There is no rebound, voluntary guarding, or rigidity. : Deferred. No Jiménez. EXTREMITIES: Non-edematous and not cyanotic. No clubbing. Good capillary refill. SKIN: No skin breakdown. Vital Signs (last 8hr) Date Time Temp Pulse Resp B/P (MAP) Pulse Ox O2 Delivery O2 Flow Rate FiO2 03/07/25 12:30 56 19 127/49 97 Room Air 03/07/25 12:15 62 17 114/50 99 Room Air 03/07/25 12:00 96.3 62 14 107/79 96 Room Air 03/07/25 11:45 64 18 113/48 99 Room Air LABS: Laboratory: Test 03/07/25 11:24 03/07/25 05:44 03/07/25 05:15 03/06/25 20:26 Range/Units Troponin I High Sensitivity 11 4-75 ng/L White Blood Count 8.4 4.8-10.8 K/uL Red Blood Count 4.68 4.50-6.20 MIL/uL Hemoglobin 13.6 L 14.0-18.0 g/dL Hematocrit 39.6 L 42-54 % Mean Corpuscular Volume 84.6 79-99 fL Mean Corpuscular Hemoglobin 29.1 27.0-33.0 pg Mean Corpuscular Hemoglobin Concent 34.3 32.0-36.0 g/dL Red Cell Distribution Width 16.2 H 11.0-15.5 % Platelet Count 161 130-400 K/uL Mean Platelet Volume 10.1 7.5-10.5 fL Immature Granulocyte % (Auto) 0.4 0-1 % Neutrophils (%) (Auto) 56.6 40.0-77.0 % Lymphocytes (%) (Auto) 29.6 21.0-51.0 % Monocytes (%) (Auto) 8.4 3.0-13.0 % Eosinophils (%) (Auto) 4.2 0.0-8.0 % Basophils (%) (Auto) 0.8 0.0-5.0 % Neutrophils # (Auto) 4.8 1.8-7.7 K/uL Lymphocytes # (Auto) 2.5 1.0-4.8 K/uL Monocytes # (Auto) 0.7 0.1-1.0 K/uL Eosinophils # (Auto) 0.35 0.00-0.70 K/uL Basophils # (Auto) 0.07 0.00-0.20 K/uL Absolute Immature Granulocyte (auto 0.03 0-1 K/uL Nucleated Red Blood Cells 0.0 0.0-0.19 % Erythrocyte Sedimentation Rate 15 0-20 MM/HR Sodium Level 138 136-145 mmol/L Potassium Level 4.7 3.5-5.1 mmol/L Chloride Level 107 101-111 mmol/L Carbon Dioxide Level 22 21-32 mmol/L Blood Urea Nitrogen 45 H 7-18 mg/dL Creatinine 1.8 H 0.5-1.3 mg/dL Glomerular Filtration Rate Calc 40 >90 mL/min Random Glucose 122 H 70-105 mg/dL Total Calcium 8.7 8.5-10.1 mg/dL Total Bilirubin 0.5 0.2-1.0 mg/dL Aspartate Amino Transf (AST/SGOT) 15 10-37 U/L Alanine Aminotransferase (ALT/SGPT) 30 12-78 U/L Alkaline Phosphatase 61 50-136 U/L Total Creatine Kinase 95 # 21-232 U/L Total Protein 6.8 6.0-8.3 g/dL Albumin 3.2 L 3.5-5.0 g/dL Whole Blood Glucose 117 H 70-110 MG/DL Prothrombin Time 10.7 9.6-11.6 SEC Prothromb Time International Ratio 1.01 0.85-1.15 Activated Partial Thromboplast Time 25.2 L 26.3-35.5 SEC B-Type Natriuretic Peptide 693 H 0-100 pg/mL Current Medications Medications (Trade) Dose Ordered Sig/Calin Route PRN Reason Start Time Stop Time Status Last Admin Dose Admin Acetaminophen (TYLenol 325MG TAB) 650 mg Q4H PRN PO MILD PAIN (1-3) 03/07/25 00:00 04/06/25 00:00 Acetaminophen (TYLenol 325MG TAB) 650 mg Q6H PRN PO TEMPERATURE GREATER THAN 101.5 03/07/25 00:00 04/06/25 00:00 Aspirin (Aspirin 81mg Chew Tab) 81 mg DAILY PO 03/07/25 09:00 03/07/25 11:14 DC Aspirin (Aspirin 81mg Chew Tab) 81 mg DAILY PO 03/08/25 09:00 04/07/25 08:59 Atorvastatin Calcium (LIPItor 20MG) 20 mg HS PO 03/07/25 21:00 04/06/25 20:59 Clopidogrel Bisulfate (plaVIX 75MG) 75 mg DAILY PO 03/08/25 09:00 04/07/25 08:59 Dextrose (D50w) 50 ml AD PRN IV HYPOGLYCEMIA PROTOCOL 03/07/25 00:00 04/06/25 00:00 Dextrose (D50w) 50 ml AD PRN IV HYPOGLYCEMIA PROTOCOL 03/07/25 11:30 03/07/25 11:14 DC Famotidine (Pepcid 20mg Tab) 20 mg DAILY PO 03/07/25 09:00 04/06/25 08:59 Furosemide (LASix 20MG VIAL) 20 mg DAILY10 IV 03/07/25 10:00 04/06/25 09:59 Glucagon (Glucagon 1mg Kit) 1 mg AD PRN IM HYPOGLYCEMIA PROTOCOL 03/07/25 00:00 04/06/25 00:00 Glucagon (Glucagon 1mg Kit) 1 mg AD PRN IM HYPOGLYCEMIA PROTOCOL 03/07/25 11:30 03/07/25 11:15 DC Hydralazine HCl (APRESOLine 20MG INJ) 10 mg Q6H PRN IV For:SBP above 160;DBP above 90 03/07/25 00:00 04/06/25 00:00 Insulin Human Regular (humuLIN R 100 UNIT/ML 3ML) INSULIN SLIDING SCAL... ACHS SQ 03/07/25 07:30 04/06/25 07:29 Magnesium Sulfate 50 ml @ 0 mls/hr PROTOCOL PRN IV OTHER [SEE ORDER COMMENTS] 03/07/25 00:00 04/06/25 00:00 Metoprolol Succinate (TopROL XL) 25 mg DAILY PO 03/07/25 09:00 04/06/25 08:59 Nitroglycerin (Nitrostat) 0.4 mg PROTOCOL PRN SL CHEST PAIN 03/07/25 00:00 04/06/25 00:00 Ondansetron HCl (zoFRAN 4MG INJ) 4 mg Q6H PRN IV NAUSEA/VOMITING 03/07/25 00:00 04/06/25 00:00 Potassium Chloride 100 ml @ 100 mls/hr AD PRN IV POTASSIUM PROTOCOL 03/07/25 00:00 04/06/25 00:00 Potassium Chloride (K-Dur/Klor-Con 20meq) 20 meq AD PRN PO POTASSIUM PROTOCOL 03/07/25 00:00 04/06/25 00:00 Potassium Chloride (KCl 10% Elixir 20meq/15ml) 20 meq AD PRN PO POTASSIUM PROTOCOL 03/07/25 00:00 04/06/25 00:00 Sacubitril/ Valsartan (Entresto 24 Mg-26 Mg Tablet) 1 each BID PO 03/07/25 09:00 04/06/25 08:59 DIAGNOSTICS / RADIOLOGY: PATIENT: DHEERAJ CHAWLA MR#: [id number] : 1955 SEX: M AGE: 69 LOCATION: [facility] ORDER 16 STATUS: REG ER REPORT#: [id number] SERVICE 16 REASON: CHEST PAIN ORDERING PHYSICIAN: MAXIME FUNEZ MD PROCEDURE: CXR1VW - CHEST 1VW CHEST 1VW HISTORY: Chest pain COMPARISON: 03/05/2025 FINDINGS: A frontal projection of the chest was obtained. Mild bilateral pulmonary infiltrates are seen may be related to mild pulmonary vascular congestion with possible superimposed pneumonitis. Poststernotomy changes are seen. The heart is enlarged. Degenerative changes of the thoracolumbar spine are present. All the lines and tubes are again seen in place. Pacemaker is seen entering from the left. No fracture is seen LEFT clavicle. IMPRESSION: 1. Mild bilateral pulmonary infiltrates are seen may be related to mild pulmonary vascular congestion with possible superimposed pneumonitis. 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 Chronic renal insufficiency POA Coronary artery disease with CABG x3 and cardiac stent x4 POA AICD status POA Uncontrolled diabetes POA Morbid obesity POA Hypertension POA Hyperlipidemia POA Obstructive sleep apnea on CPAP at home POA PLAN: s/p PTCA/PCI Mid Left Circumflex and Mid 2nd Obtuse Marginal Branch of the Left Circumflex by Dr Baldev Escobedo on 03/07/25 Chest pain rule out ACS POA 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 * Admit in Telemetry * Continue with a heart healthy diet *Continue with Atorvastatin 20mg, Sacubitril/Valsatan 24/26mg, Metoprolol 25mg *Patient requires Aspirin 81mg daily, Plavix 75mg daily for at least 6-12months in addition to high intensity statin. *Plan for discharge in 24 hours if patient remains hemodynamically stable. Chronic renal insufficiency POA *Strict monitoring of intake and output *Daily weights *Discontinue all nephrotoxic agents *Monitor electrolytes and replace as needed *Goal urine output of 30 ml/h or 0.5ml/kg/hr *Medications to be dosed according to renal function *Avoid the use of contrast if possible. Uncontrolled diabetes POA *Maintain blood glucose between 100-180 at all times *Insulin sliding scale for blood glucose management *Hyperglycemia and hypoglycemia protocols in place Hypertension POA Hyperlipidemia POA *Follow hemodynamics. *Vital signs per facility protocol Obstructive sleep apnea on CPAP at home POA Morbid obesity POA Famotidine 20mg PO ATTESTATION BY PHYSICIAN I have seen and examined the patient. I reviewed the documentation, medical decision making, and treatment plan as noted by the resident provider above. I agree with the findings and plan of care. Quan Hopson MD OBI,CHANG Sevilla MD Mar 07, 2025 12:48
[2025-03-07 14:12] LABS: ALBUMIN 3.3 g/dL (3.5-5.0); BILIRUBIN,TOTAL 0.4 mg/dL (0.2-1.0)
--- NOTE | 2025-03-07 14:36 | NUR ---
DCP: HOME Pt lives with common law sps. Dgt Leatha Abgab is pt's MPOA. Pt uses a cane, walker, and CPAP at home. pt is able to complete ADLs independently. PCP is Gilda Ann and uses [facility] for any RX needs. Pt's dgt asked if there was any programs that could help dad with things around the house. SW made a referral to Deborah from the [facility] for potential assistance. At DC pt will want to go home and family can assist with transportation. Addendum: 03/07/25 at 1443 by MAURO BAEZ SS Amended: Links added.
--- NOTE | 2025-03-07 15:00 | NUR ---
[facility] ICU Skin Assessment: Unable to assess patient at this time. s/p procedure, in reverse Trendelenburg position at this time for 6 hours. Addendum: 03/08/25 at 1336 by BRIANNE WORKMAN RN RN/ Amended: Links added.
--- NOTE | 2025-03-07 16:30 | NUR ---
PT CARE By way of pt's dexIdentified glucose sensor, BS is 118.
--- NOTE | 2025-03-07 17:00 | NUR ---
STATUS Pt repositioned to upright position in bed. Groin assessment unchanged - sanguineous drainage to gauze drsg but tegaderm remains intact. No hematoma or active bleeding from site. Pt positioned for comfort for evening meal. Needed items,call light placed within reach. Pt's daughter at bedside.
[2025-03-07] MEDS: atorVAStatin 20 MG TABLET PO SCH (20:53)
[2025-03-07] MEDS: BUMETANIDE 1MG/4ML VIAL IVP SCH (20:53)
[2025-03-08] VITALS (16 sets, daily range): BP systolic 85–148; BP diastolic 41–83; PULSE 68–90; RESP 14–72; TEMP 97.2–99.1; O2SAT 97–99
[2025-03-08] MEDS: acetaMINOPHEN 325 MG TAB PO PRN ×2 (03:40→16:34)
[2025-03-08 04:28] LABS: BASOPHILS # (AUTO) 0.07 K/uL (0.00-0.20); BASOPHILS % (AUTO) 0.6 % (0.0-5.0); EOSINOPHILS # (AUTO) 0.26 K/uL (0.00-0.70); EOSINOPHILS % (AUTO) 2.3 % (0.0-8.0); HEMATOCRIT 40.7 % (42-54); IMMATURE GRANULOCYTE ABSOLUTE 0.04 K/uL (0-1); LYMPHOCYTES # (AUTO) 1.8 K/uL (1.0-4.8); LYMPHOCYTES % (AUTO) 16.1 % (21.0-51.0); MEAN CORPUSCULAR HEMOGLOBIN 28.9 pg (27.0-33.0); MEAN CORPUSCULAR HGB CONC 32.9 g/dL (32.0-36.0); MEAN CORPUSCULAR VOLUME 87.7 fL (79-99); MONOCYTES # (AUTO) 0.8 K/uL (0.1-1.0); NEUTROPHILS # (AUTO) 8.3 K/uL (1.8-7.7); NEUTROPHILS % (AUTO) 73.6 % (40.0-77.0); PLATELET COUNT (AUTO) 141 K/uL (130-400); RED BLOOD CELL COUNT(AUTO) 4.64 MIL/uL (4.50-6.20); RED CELL DISTRIBUTION WIDTH 16.3 % (11.0-15.5); WHITE BLOOD COUNT (AUTO) 11.3 K/uL (4.8-10.8)
[2025-03-08 04:44] LABS: ALBUMIN 3.3 g/dL (3.5-5.0); BILIRUBIN,TOTAL 0.9 mg/dL (0.2-1.0); CREATININE 1.6 mg/dL (0.5-1.3); POTASSIUM 4.7 mmol/L (3.5-5.1)
[2025-03-08] MEDS: ASPIRIN 81MG CHEW TAB PO SCH (08:21)
[2025-03-08] MEDS: cloPIDOgrel 75MG TAB PO SCH (08:21)
--- NOTE | 2025-03-08 10:04 | PN ---
[facility] CARDIOLOGY PROGRESS NOTE Date Patient Seen: Mar 08, 2025 Time of Visit: 09:58 Interval History: [No acute events overnight , the patient underwent coronary angiogram yesterdar and is now Status post successful Impella supported, IV L, PTCA/PCI of the mid left circumflex (3x26 mm tayler Zavala drug-eluting stent, postdilated 3.5 mm) and Status post successful Impella supported PTCA/PCI of the mid OM2 (2.25 by 38 mm tayler Zavala drug-eluting stent) , the patient tolerated the procedure well , no complications, today he denies any chest pain , palpitations. dyspnea or any other anginal equivalents. ] Physical Examination: GENERAL: [No acute distress.] HEAD: [Normal with no signs of head trauma.] EYES: [PERRLA, EOMI, conjunctiva and sclera normal.] ENT: [Hearing grossly intact, normal oropharynx.] NECK: [Supple without JVD. There is no tenderness, lymphadenopathy, or masses. No thyromegaly. Normal carotid upstrokes without bruits.] LUNGS: [Clear breath sounds bilaterally. There are right basilar rales one third of the way up the chest. No wheezes, or rhonchi.] HEART: [Normal rate and rhythm. Normal S1 and S2 without mumurs, gallop or rub.] VASC: [Peripheral pulses +2 bilaterally.] ABD: [Bowel sounds normal, soft, nontender, no masses, no organomegaly. No audible bruits.] : [Not examined] LYMPH: [No lymphadenopathy noted.] EXT: [No clubbing, cyanosis or edema.] SKIN: [No rashes or lesions noted.] NEURO: [Awake, alert, and oriented x3. No focal sensory or strength deficits noted.] Laboratory: [ ] Hematology Labs: Test 03/08/25 04:15 03/07/25 05:44 Range/Units White Blood Count 11.3 #H 4.8-10.8 K/uL Red Blood Count 4.64 4.50-6.20 MIL/uL Hemoglobin 13.4 L 14.0-18.0 g/dL Hematocrit 40.7 L 42-54 % Mean Corpuscular Volume 87.7 79-99 fL Mean Corpuscular Hemoglobin 28.9 27.0-33.0 pg Mean Corpuscular Hemoglobin Concent 32.9 32.0-36.0 g/dL Red Cell Distribution Width 16.3 H 11.0-15.5 % Platelet Count 141 130-400 K/uL Mean Platelet Volume 9.5 7.5-10.5 fL Immature Granulocyte % (Auto) 0.4 0-1 % Neutrophils (%) (Auto) 73.6 40.0-77.0 % Lymphocytes (%) (Auto) 16.1 L 21.0-51.0 % Monocytes (%) (Auto) 7.0 3.0-13.0 % Eosinophils (%) (Auto) 2.3 0.0-8.0 % Basophils (%) (Auto) 0.6 0.0-5.0 % Neutrophils # (Auto) 8.3 H 1.8-7.7 K/uL Lymphocytes # (Auto) 1.8 1.0-4.8 K/uL Monocytes # (Auto) 0.8 0.1-1.0 K/uL Eosinophils # (Auto) 0.26 0.00-0.70 K/uL Basophils # (Auto) 0.07 0.00-0.20 K/uL Absolute Immature Granulocyte (auto 0.04 0-1 K/uL Nucleated Red Blood Cells 0.0 0.0-0.19 % Erythrocyte Sedimentation Rate 15 0-20 MM/HR Chemistry Labs: Test 03/08/25 04:15 03/07/25 11:24 03/07/25 05:44 03/07/25 05:15 Range/Units Sodium Level 138 136-145 mmol/L Potassium Level 4.7 3.5-5.1 mmol/L Chloride Level 104 101-111 mmol/L Carbon Dioxide Level 24 21-32 mmol/L Blood Urea Nitrogen 37 #H 7-18 mg/dL Creatinine 1.6 H 0.5-1.3 mg/dL Glomerular Filtration Rate Calc 47 >90 mL/min Random Glucose 130 H 70-105 mg/dL Total Calcium 8.6 8.5-10.1 mg/dL Magnesium Level 2.00 1.80-2.40 mg/dL Total Bilirubin 0.9 # 0.2-1.0 mg/dL Aspartate Amino Transf (AST/SGOT) 18 10-37 U/L Alanine Aminotransferase (ALT/SGPT) 30 12-78 U/L Alkaline Phosphatase 66 50-136 U/L Total Protein 7.0 6.0-8.3 g/dL Albumin 3.3 L 3.5-5.0 g/dL Troponin I High Sensitivity 11 4-75 ng/L Total Creatine Kinase 95 # 21-232 U/L Whole Blood Glucose 117 H 70-110 MG/DL Test 03/06/25 20:26 Range/Units B-Type Natriuretic Peptide 693 H 0-100 pg/mL Coagulation Labs: Test 03/07/25 10:40 03/06/25 20:26 Range/Units Activated Clotting Time 345 H 100-180 SEC Prothrombin Time 10.7 9.6-11.6 SEC Prothromb Time International Ratio 1.01 0.85-1.15 Activated Partial Thromboplast Time 25.2 L 26.3-35.5 SEC Diagnostics / Radiology: [Copy/Paste Echos/Imaging Report here] Impression and Plan: CAD s/p 3v CABG ( ALVARES - LAD, SVG- OM and SVG- RCA on 12/28/2023 [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 The patient underwent coronary angiogram yesterday : Status post successful Impella supported, IV L, PTCA/PCI of the mid left circumflex (3x26 mm tayler Zavala drug-eluting stent, postdilated 3.5 mm) Status post successful Impella supported PTCA/PCI of the mid OM2 (2.25 by 38 mm tayler Zavala drug-eluting stent) Since his procedure the patient states that his exertional dyspnea has improved Aggressive risk factor modification. Patient required DAPT (aspirin 81 mg q.day/Plavix 75 mg q.day) at times 6-12 months in addition to high-intensity statin therapy, Toprol 25 mg daily #Acute on chronic HFrEF: Advanced Ischemic cardiomyopathy. 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 Thank you for this consult , cardiology will Baldev Escobedo MD ATTESTATION BY PHYSICIAN I have seen and examined the patient, reviewed the above documentation, participated in medical decision making, made necessary modifications, and agree with the treatment plan as documented by my mid-level provider above. MD DREAD Holt JAMES R MD Mar 08, 2025 10:04
--- NOTE | 2025-03-08 10:39 | PN ---
[facility] PROGRESS NOTE Date of Service: Mar 08, 2025 Time of Service: 10:39 SUBJECTIVE: HPI Patient is a 69-year-old male with past medical history of Diabetes,CHF, Chronic obstructive pulmonary disease, obstructive sleep apnea on CPAP at home, coronary artery disease and hyperlipidemia who presents to the ED for complaints of right sided chest pain, shortness of breaths and dizziness which started today. Patient reports he has been having these symptoms since this week and worsened today so he decided to come in for evaluation. Patient described pain as sharp and radiates up to his neck similar to when he had a heart attack. States that it is triggered with minimal exertion. Patient reports that he gets very short of breath and dizzy just walking a short distance. Patient reports having dry cough that has been ongoing for a week. 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 Patient had an echocardiogram done on November 22, 2024 showed severe global hypokinesis of the left ventricle and systolic function is severely depressed estimated EF of 15-20% grade 3 diastolic dysfunction. 03/07/25:Lying in bed at the time of evaluation. Alert, oriented and in no obvious distress. Patient is status post PTCA/PCI of the mid left circumflex and PTCA/PCI of the mid second obtuse marginal branch of the Left Circumflex Coronary Artery by Dr Baldev Escobedo on 03/07/25. Labs: WBC 8.4, Hb 13.6, Hct 39.6 Chem: Sodium 138, Potassium 4.7, BUN 45, Cr 1.8. Continue on Atorvastatin 20mg, Sacubitril/Valsatan 24/26mg, Metoprolol 25mg . Patient requires Aspirin 81mg daily, Plavix 75mg daily for at least 6-12months in addition to high intensity statin. Plan for discharge in 24 hours if patient remains hemodynamically stable. 03/08/25: Lying in bed at the time of evaluation. Alert, oriented and in no obvious distress. Patient is status post PTCA/PCI of the mid left circumflex and PTCA/PCI of the mid second obtuse marginal branch of the Left Circumflex Coronary Artery by Dr Baldev Escobedo on 03/07/25. Patient is doing very well. Vital signs and labs are relatively unremarkable. Patient denies any chest pain, shortness of breath, nausea or vomiting. Patient is ambulating around the unit with assistance. Plan is for discharge tomorrow if patient remains hemodynamically stable. REVIEW OF SYSTEMS CONSTITUTIONAL: Denies fevers, chills, or night sweats. No unintentional weight loss reported. NEUROLOGICAL: Denies headache, amaurosis fugax, motor weakness, sensory deficit, vertigo/spinning sensation, gait abnormalities, or tremors. ENT: No hearing loss, otalgia, otorrhea, rhinitis, rhinorrhea, hoarseness, or sore throat. CARDIOVASCULAR: right-sided chest pain and dyspnea on exertion Denies orthopnea, paroxysmal nocturnal dyspnea, palpitations, life-threatening arrhythmias, claudication. PULMONARY: shortness of breaths and dry cough Denies hemoptysis, pleuritic chest pain. SLEEP: Denies morning headaches, daytime somnolence or napping. Denies difficulty falling asleep, staying asleep, waking from sleep. Denies knowledge of snoring. GASTROINTESTINAL: Denies any type of dysphagia to either liquids or solids. Denies nausea, vomiting, pyrosis, early satiety, abdominal pain, diarrhea, constipation, or changes in stool consistency or caliber. Denies coffee-ground emesis, hematemesis, hematochezia, or melanotic stools. GENITOURINARY: Denies frequency, urgency, nocturia, hematuria or incontinence (Storage/Irritative symptoms.) Low urinary stream, straining to void, urinary intermittency or hesitancy, splitting of the voiding stream, terminal dribbling. ENDOCRINOLOGIC: Denies polyuria, polydipsia, polyphagia or heat/cold intolerances. HEMATOLOGIC: Denies thrombophilia/previous clots, or coagulopathy/bleeding disorders. ONCOLOGIC: Denies personal history of malignancy. DERMATOLOGIC: Denies rashes or pruritus. PSYCHIATRIC: Denies any suicidal or homicidal ideation. Denies hallucinations. PHYSICAL EXAM GENERAL APPEARANCE: The patient is awake, alert, and oriented, in no acute cardiopulmonary distress. NEUROLOGICAL: Cranial nerves II-XII grossly intact. Motor is 5/5 in bilateral upper and lower extremities proximal to distal. No sensory deficits. HEENT: Face is symmetric. Pupils are equal and reactive. Extraocular movements are intact. NECK: Supple. No JVD. No thyromegaly. No submental, submandibular, pre- /postauricular, occipital or supraclavicular lymphadenopathy. CHEST: Normal chest expansion. No Telemetry. LUNGS: Crackles on the lower bases more on left lung per auscultation CARDIOVASCULAR: Regular. S1 and S2 normal. No appreciable rubs, murmurs or gallops. ABDOMEN: Soft, nontender, and nondistended. There is no rebound, voluntary guarding, or rigidity. : Deferred. No Jiménez. EXTREMITIES: Non-edematous and not cyanotic. No clubbing. Good capillary refill. SKIN: No skin breakdown. Vital Signs (last 8hr) Date Time Temp Pulse Resp B/P (MAP) Pulse Ox O2 Delivery O2 Flow Rate FiO2 03/08/25 08:00 98 Room Air* 0 21 03/08/25 08:00 98.6 90 21 105/74 99 Room Air 03/08/25 07:00 79 15 105/50 96 Room Air 03/08/25 06:00 68 34 104/57 99 Room Air 03/08/25 05:00 71 18 141/44 98 Room Air 03/08/25 04:00 97 Room Air* 0 21 03/08/25 04:00 79 72 124/60 97 Room Air 03/08/25 03:00 86 30 122/62 94 Room Air LABS: Laboratory: Test 03/08/25 04:15 03/07/25 11:24 03/07/25 10:40 03/07/25 05:44 Range/Units White Blood Count 11.3 #H 4.8-10.8 K/uL Red Blood Count 4.64 4.50-6.20 MIL/uL Hemoglobin 13.4 L 14.0-18.0 g/dL Hematocrit 40.7 L 42-54 % Mean Corpuscular Volume 87.7 79-99 fL Mean Corpuscular Hemoglobin 28.9 27.0-33.0 pg Mean Corpuscular Hemoglobin Concent 32.9 32.0-36.0 g/dL Red Cell Distribution Width 16.3 H 11.0-15.5 % Platelet Count 141 130-400 K/uL Mean Platelet Volume 9.5 7.5-10.5 fL Immature Granulocyte % (Auto) 0.4 0-1 % Neutrophils (%) (Auto) 73.6 40.0-77.0 % Lymphocytes (%) (Auto) 16.1 L 21.0-51.0 % Monocytes (%) (Auto) 7.0 3.0-13.0 % Eosinophils (%) (Auto) 2.3 0.0-8.0 % Basophils (%) (Auto) 0.6 0.0-5.0 % Neutrophils # (Auto) 8.3 H 1.8-7.7 K/uL Lymphocytes # (Auto) 1.8 1.0-4.8 K/uL Monocytes # (Auto) 0.8 0.1-1.0 K/uL Eosinophils # (Auto) 0.26 0.00-0.70 K/uL Basophils # (Auto) 0.07 0.00-0.20 K/uL Absolute Immature Granulocyte (auto 0.04 0-1 K/uL Nucleated Red Blood Cells 0.0 0.0-0.19 % Sodium Level 138 136-145 mmol/L Potassium Level 4.7 3.5-5.1 mmol/L Chloride Level 104 101-111 mmol/L Carbon Dioxide Level 24 21-32 mmol/L Blood Urea Nitrogen 37 #H 7-18 mg/dL Creatinine 1.6 H 0.5-1.3 mg/dL Glomerular Filtration Rate Calc 47 >90 mL/min Random Glucose 130 H 70-105 mg/dL Total Calcium 8.6 8.5-10.1 mg/dL Magnesium Level 2.00 1.80-2.40 mg/dL Total Bilirubin 0.9 # 0.2-1.0 mg/dL Aspartate Amino Transf (AST/SGOT) 18 10-37 U/L Alanine Aminotransferase (ALT/SGPT) 30 12-78 U/L Alkaline Phosphatase 66 50-136 U/L Total Protein 7.0 6.0-8.3 g/dL Albumin 3.3 L 3.5-5.0 g/dL Troponin I High Sensitivity 11 4-75 ng/L Activated Clotting Time 345 H 100-180 SEC Erythrocyte Sedimentation Rate 15 0-20 MM/HR Total Creatine Kinase 95 # 21-232 U/L Test 03/07/25 05:15 03/06/25 20:26 Range/Units Whole Blood Glucose 117 H 70-110 MG/DL Prothrombin Time 10.7 9.6-11.6 SEC Prothromb Time International Ratio 1.01 0.85-1.15 Activated Partial Thromboplast Time 25.2 L 26.3-35.5 SEC B-Type Natriuretic Peptide 693 H 0-100 pg/mL Current Medications Medications (Trade) Dose Ordered Sig/Calin Route PRN Reason Start Time Stop Time Status Last Admin Dose Admin Acetaminophen (TYLenol 325MG TAB) 650 mg Q4H PRN PO MILD PAIN (1-3) 03/07/25 00:00 04/06/25 00:00 Acetaminophen (TYLenol 325MG TAB) 650 mg Q6H PRN PO TEMPERATURE GREATER THAN 101.5 03/07/25 00:00 04/06/25 00:00 03/08/25 03:40 650 MG Aspirin (Aspirin 81mg Chew Tab) 81 mg DAILY PO 03/07/25 09:00 03/07/25 11:14 DC Aspirin (Aspirin 81mg Chew Tab) 81 mg DAILY PO 03/08/25 09:00 04/07/25 08:59 03/08/25 08:21 81 MG Atorvastatin Calcium (LIPItor 20MG) 20 mg HS PO 03/07/25 21:00 04/06/25 20:59 03/07/25 20:53 20 MG Bumetanide (Bumex 1mg Vial) 1 mg BID IVP 03/07/25 21:00 04/06/25 20:59 03/08/25 08:21 1 MG Clopidogrel Bisulfate (plaVIX 75MG) 75 mg DAILY PO 03/08/25 09:00 04/07/25 08:59 03/08/25 08:21 75 MG Dextrose (D50w) 50 ml AD PRN IV HYPOGLYCEMIA PROTOCOL 03/07/25 00:00 04/06/25 00:00 Dextrose (D50w) 50 ml AD PRN IV HYPOGLYCEMIA PROTOCOL 03/07/25 11:30 03/07/25 11:14 DC Famotidine (Pepcid 20mg Tab) 20 mg DAILY PO 03/07/25 09:00 04/06/25 08:59 03/08/25 08:21 20 MG Furosemide (LASix 20MG VIAL) 20 mg DAILY10 IV 03/07/25 10:00 03/07/25 13:15 DC Glucagon (Glucagon 1mg Kit) 1 mg AD PRN IM HYPOGLYCEMIA PROTOCOL 03/07/25 00:00 04/06/25 00:00 Glucagon (Glucagon 1mg Kit) 1 mg AD PRN IM HYPOGLYCEMIA PROTOCOL 03/07/25 11:30 03/07/25 11:15 DC Hydralazine HCl (APRESOLine 20MG INJ) 10 mg Q6H PRN IV For:SBP above 160;DBP above 90 03/07/25 00:00 04/06/25 00:00 Insulin Human Regular (humuLIN R 100 UNIT/ML 3ML) INSULIN SLIDING SCAL... ACHS SQ 03/07/25 07:30 04/06/25 07:29 Magnesium Sulfate 50 ml @ 0 mls/hr PROTOCOL PRN IV OTHER [SEE ORDER COMMENTS] 03/07/25 00:00 04/06/25 00:00 Metoprolol Succinate (TopROL XL) 25 mg DAILY PO 03/07/25 09:00 04/06/25 08:59 03/08/25 08:21 25 MG Nitroglycerin (Nitrostat) 0.4 mg PROTOCOL PRN SL CHEST PAIN 03/07/25 00:00 04/06/25 00:00 Ondansetron HCl (zoFRAN 4MG INJ) 4 mg Q6H PRN IV NAUSEA/VOMITING 03/07/25 00:00 04/06/25 00:00 Potassium Chloride 100 ml @ 100 mls/hr AD PRN IV POTASSIUM PROTOCOL 03/07/25 00:00 04/06/25 00:00 Potassium Chloride (K-Dur/Klor-Con 20meq) 20 meq AD PRN PO POTASSIUM PROTOCOL 03/07/25 00:00 04/06/25 00:00 Potassium Chloride (KCl 10% Elixir 20meq/15ml) 20 meq AD PRN PO POTASSIUM PROTOCOL 03/07/25 00:00 04/06/25 00:00 Sacubitril/ Valsartan (Entresto 24 Mg-26 Mg Tablet) 1 each BID PO 03/07/25 09:00 04/06/25 08:59 03/08/25 08:21 1 EACH DIAGNOSTICS / RADIOLOGY: [ ] ASSESSMENT: Chest pain rule out ACS POA 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 Chronic renal insufficiency POA Coronary artery disease with CABG x3 and cardiac stent x4 POA AICD status POA Uncontrolled diabetes POA Morbid obesity POA Hypertension POA Hyperlipidemia POA Obstructive sleep apnea on CPAP at home POA PLAN: s/p PTCA/PCI Mid Left Circumflex and Mid 2nd Obtuse Marginal Branch of the Left Circumflex by Dr Baldev Escobedo on 03/07/25 Chest pain rule out ACS POA 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 * Admit in Telemetry * Continue with a heart healthy diet *Continue with Atorvastatin 20mg, Sacubitril/Valsatan 24/26mg, Metoprolol 25mg *Patient requires Aspirin 81mg daily, Plavix 75mg daily for at least 6-12months in addition to high intensity statin. *Plan for discharge in 24 hours if patient remains hemodynamically stable. Chronic renal insufficiency POA *Strict monitoring of intake and output *Daily weights *Discontinue all nephrotoxic agents *Monitor electrolytes and replace as needed *Goal urine output of 30 ml/h or 0.5ml/kg/hr *Medications to be dosed according to renal function *Avoid the use of contrast if possible. Uncontrolled diabetes POA *Maintain blood glucose between 100-180 at all times *Insulin sliding scale for blood glucose management *Hyperglycemia and hypoglycemia protocols in place Hypertension POA Hyperlipidemia POA *Follow hemodynamics. *Vital signs per facility protocol Obstructive sleep apnea on CPAP at home POA Morbid obesity POA Famotidine 20mg PO ATTESTATION BY PHYSICIAN I have seen and examined the patient. I reviewed the documentation, medical decision making, and treatment plan as noted by the resident provider above. I agree with the findings and plan of care. Quan Hopson MD OBI,CHANG Sevilla MD Mar 08, 2025 10:39
[2025-03-09] VITALS (7 sets, daily range): BP systolic 109–120; BP diastolic 35–77; PULSE 88–100; RESP 18–19; TEMP 96.8–99.4; O2SAT 97
[2025-03-09 05:19] LABS: BASOPHILS # (AUTO) 0.05 K/uL (0.00-0.20); BASOPHILS % (AUTO) 0.4 % (0.0-5.0); EOSINOPHILS % (AUTO) 0.7 % (0.0-8.0); HEMATOCRIT 37.4 % (42-54); IMMATURE GRANULOCYTE ABSOLUTE 0.05 K/uL (0-1); LYMPHOCYTES # (AUTO) 1.1 K/uL (1.0-4.8); LYMPHOCYTES % (AUTO) 8.1 % (21.0-51.0); MEAN CORPUSCULAR HEMOGLOBIN 29.1 pg (27.0-33.0); MEAN CORPUSCULAR HGB CONC 34.8 g/dL (32.0-36.0); MEAN CORPUSCULAR VOLUME 83.9 fL (79-99); MONOCYTES # (AUTO) 0.9 K/uL (0.1-1.0); MONOCYTES % (AUTO) 6.2 % (3.0-13.0); NEUTROPHILS # (AUTO) 11.5 K/uL (1.8-7.7); NEUTROPHILS % (AUTO) 84.2 % (40.0-77.0); PLATELET COUNT (AUTO) 138 K/uL (130-400); RED BLOOD CELL COUNT(AUTO) 4.46 MIL/uL (4.50-6.20); RED CELL DISTRIBUTION WIDTH 16.3 % (11.0-15.5); WHITE BLOOD COUNT (AUTO) 13.7 K/uL (4.8-10.8)
[2025-03-09 08:45] LABS: CREATININE 1.8 mg/dL (0.5-1.3); POTASSIUM 4.9 mmol/L (3.5-5.1)
--- NOTE | 2025-03-09 09:20 | NUR ---
DR. [place] UPDATED ON BMP RESULTS. HE IS AWARE STILL WAITING ON PT TO EVALUATE
--- NOTE | 2025-03-09 10:03 | PN ---
[facility] PROGRESS NOTE Date of Service: Mar 09, 2025 Time of Service: 09:59 SUBJECTIVE: HPI Patient is a 69-year-old male with past medical history of Diabetes,CHF, Chronic obstructive pulmonary disease, obstructive sleep apnea on CPAP at home, coronary artery disease and hyperlipidemia who presents to the ED for complaints of right sided chest pain, shortness of breaths and dizziness which started today. Patient reports he has been having these symptoms since this week and worsened today so he decided to come in for evaluation. Patient described pain as sharp and radiates up to his neck similar to when he had a heart attack. States that it is triggered with minimal exertion. Patient reports that he gets very short of breath and dizzy just walking a short distance. Patient reports having dry cough that has been ongoing for a week. Patient reports his boarder hand is . Patient had an echocardiogram done on November 22, 2024 showed severe global hypokinesis of the left ventricle and systolic function is severely depressed estimated EF of 15-20% grade 3 diastolic dysfunction. 03/07/25:Lying in bed at the time of evaluation. Alert, oriented and in no obvious distress. Patient is status post PTCA/PCI of the mid left circumflex and PTCA/PCI of the mid second obtuse marginal branch of the Left Circumflex Coronary Artery by Dr Baldev Escobedo on 03/07/25. Labs: WBC 8.4, Hb 13.6, Hct 39.6 Chem: Sodium 138, Potassium 4.7, BUN 45, Cr 1.8. Continue on Atorvastatin 20mg, Sacubitril/Valsatan 24/26mg, Metoprolol 25mg . Patient requires Aspirin 81mg daily, Plavix 75mg daily for at least 6-12months in addition to high intensity statin. Plan for discharge in 24 hours if patient remains hemodynamically stable. 03/08/25: Lying in bed at the time of evaluation. Alert, oriented and in no obvious distress. Patient is status post PTCA/PCI of the mid left circumflex and PTCA/PCI of the mid second obtuse marginal branch of the Left Circumflex Coronary Artery by Dr Baldev Escobedo on 03/07/25. Patient is doing very well. Vital signs and labs are relatively unremarkable. Patient denies any chest pain, shortness of breath, nausea or vomiting. Patient is ambulating around the unit with assistance. Plan is for discharge tomorrow if patient remains hemodynamically stable. 03/09/25: Lying in bed at the time of evaluation. Alert, oriented and moderate distress. Patient is status post PTCA/PCI of the mid left circumflex and PTCA/PCI of the mid second obtuse marginal branch of the Left Circumflex Coronary Artery by Dr Baldev Escobedo , post op day 2. REVIEW OF SYSTEMS CONSTITUTIONAL: Denies fevers, chills, or night sweats. No unintentional weight loss reported. NEUROLOGICAL: Denies headache, amaurosis fugax, motor weakness, sensory deficit, vertigo/spinning sensation, gait abnormalities, or tremors. ENT: No hearing loss, otalgia, otorrhea, rhinitis, rhinorrhea, hoarseness, or sore throat. CARDIOVASCULAR: right-sided chest pain and dyspnea on exertion Denies orthopnea, paroxysmal nocturnal dyspnea, palpitations, life-threatening arrhythmias, claudication. PULMONARY: shortness of breaths and dry cough Denies hemoptysis, pleuritic chest pain. SLEEP: Denies morning headaches, daytime somnolence or napping. Denies difficulty falling asleep, staying asleep, waking from sleep. Denies knowledge of snoring. GASTROINTESTINAL: Denies any type of dysphagia to either liquids or solids. Denies nausea, vomiting, pyrosis, early satiety, abdominal pain, diarrhea, constipation, or changes in stool consistency or caliber. Denies coffee-ground emesis, hematemesis, hematochezia, or melanotic stools. GENITOURINARY: Denies frequency, urgency, nocturia, hematuria or incontinence (Storage/Irritative symptoms.) Low urinary stream, straining to void, urinary intermittency or hesitancy, splitting of the voiding stream, terminal dribbling. ENDOCRINOLOGIC: Denies polyuria, polydipsia, polyphagia or heat/cold intolerances. HEMATOLOGIC: Denies thrombophilia/previous clots, or coagulopathy/bleeding di sorders. ONCOLOGIC: Denies personal history of malignancy. DERMATOLOGIC: Denies rashes or pruritus. PSYCHIATRIC: Denies any suicidal or homicidal ideation. Denies hallucinations. PHYSICAL EXAM GENERAL APPEARANCE: The patient is awake, alert, and oriented, in no acute cardiopulmonary distress. NEUROLOGICAL: Cranial nerves II-XII grossly intact. Motor is 5/5 in bilateral upper and lower extremities proximal to distal. No sensory deficits. HEENT: Face is symmetric. Pupils are equal and reactive. Extraocular movements are intact. NECK: Supple. No JVD. No thyromegaly. No submental, submandibular, pre- /postauricular, occipital or supraclavicular lymphadenopathy. CHEST: Normal chest expansion. No Telemetry. LUNGS: Crackles on the lower bases more on left lung per auscultation CARDIOVASCULAR: Regular. S1 and S2 normal. No appreciable rubs, murmurs or gallops. ABDOMEN: Soft, nontender, and nondistended. There is no rebound, voluntary guarding, or rigidity. : Deferred. No Jiménez. EXTREMITIES: Non-edematous and not cyanotic. No clubbing. Good capillary refill. SKIN: No skin breakdown. Vital Signs (last 8hr) Date Time Temp Pulse Resp B/P (MAP) Pulse Ox O2 Delivery O2 Flow Rate FiO2 03/09/25 08:00 99.3 100 19 120/35 97 Room Air 03/09/25 04:00 98.2 88 18 115/67 97 Room Air LABS: Laboratory: Test 03/09/25 08:19 03/09/25 05:53 03/09/25 04:58 03/08/25 04:15 Range/Units Sodium Level 136 136-145 mmol/L Potassium Level 4.9 3.5-5.1 mmol/L Chloride Level 104 101-111 mmol/L Carbon Dioxide Level 21 21-32 mmol/L Blood Urea Nitrogen 42 H 7-18 mg/dL Creatinine 1.8 H 0.5-1.3 mg/dL Glomerular Filtration Rate Calc 40 >90 mL/min Random Glucose 168 H 70-105 mg/dL Total Calcium 8.6 8.5-10.1 mg/dL Whole Blood Glucose 155 H 70-110 MG/DL White Blood Count 13.7 H 4.8-10.8 K/uL Red Blood Count 4.46 L 4.50-6.20 MIL/uL Hemoglobin 13.0 L 14.0-18.0 g/dL Hematocrit 37.4 L 42-54 % Mean Corpuscular Volume 83.9 79-99 fL Mean Corpuscular Hemoglobin 29.1 27.0-33.0 pg Mean Corpuscular Hemoglobin Concent 34.8 32.0-36.0 g/dL Red Cell Distribution Width 16.3 H 11.0-15.5 % Platelet Count 138 130-400 K/uL Mean Platelet Volume 10.2 7.5-10.5 fL Immature Granulocyte % (Auto) 0.4 0-1 % Neutrophils (%) (Auto) 84.2 H 40.0-77.0 % Lymphocytes (%) (Auto) 8.1 L 21.0-51.0 % Monocytes (%) (Auto) 6.2 3.0-13.0 % Eosinophils (%) (Auto) 0.7 0.0-8.0 % Basophils (%) (Auto) 0.4 0.0-5.0 % Neutrophils # (Auto) 11.5 H 1.8-7.7 K/uL Lymphocytes # (Auto) 1.1 1.0-4.8 K/uL Monocytes # (Auto) 0.9 0.1-1.0 K/uL Eosinophils # (Auto) 0.10 0.00-0.70 K/uL Basophils # (Auto) 0.05 0.00-0.20 K/uL Absolute Immature Granulocyte (auto 0.05 0-1 K/uL Nucleated Red Blood Cells 0.0 0.0-0.19 % White Cell Morphology Comment See comments Magnesium Level 2.00 1.80-2.40 mg/dL Total Bilirubin 0.9 # 0.2-1.0 mg/dL Aspartate Amino Transf (AST/SGOT) 18 10-37 U/L Alanine Aminotransferase (ALT/SGPT) 30 12-78 U/L Alkaline Phosphatase 66 50-136 U/L Total Protein 7.0 6.0-8.3 g/dL Albumin 3.3 L 3.5-5.0 g/dL Test 03/07/25 11:24 03/07/25 10:40 Range/Units Troponin I High Sensitivity 11 4-75 ng/L Activated Clotting Time 345 H 100-180 SEC Current Medications Medications (Trade) Dose Ordered Sig/Calin Route PRN Reason Start Time Stop Time Status Last Admin Dose Admin Acetaminophen (TYLenol 325MG TAB) 650 mg Q4H PRN PO MILD PAIN (1-3) 03/07/25 00:00 04/06/25 00:00 03/09/25 09:10 650 MG Acetaminophen (TYLenol 325MG TAB) 650 mg Q6H PRN PO TEMPERATURE GREATER THAN 101.5 03/07/25 00:00 04/06/25 00:00 03/08/25 03:40 650 MG Aspirin (Aspirin 81mg Chew Tab) 81 mg DAILY PO 03/07/25 09:00 03/07/25 11:14 DC Aspirin (Aspirin 81mg Chew Tab) 81 mg DAILY PO 03/08/25 09:00 04/07/25 08:59 03/09/25 09:09 81 MG Atorvastatin Calcium (LIPItor 20MG) 20 mg HS PO 03/07/25 21:00 04/06/25 20:59 03/08/25 21:09 20 MG Bumetanide (Bumex 1mg Vial) 1 mg BID IVP 03/07/25 21:00 04/06/25 20:59 03/09/25 09:10 1 MG Clopidogrel Bisulfate (plaVIX 75MG) 75 mg DAILY PO 03/08/25 09:00 04/07/25 08:59 03/09/25 09:11 75 MG Dextrose (D50w) 50 ml AD PRN IV HYPOGLYCEMIA PROTOCOL 03/07/25 00:00 04/06/25 00:00 Dextrose (D50w) 50 ml AD PRN IV HYPOGLYCEMIA PROTOCOL 03/07/25 11:30 03/07/25 11:14 DC Famotidine (Pepcid 20mg Tab) 20 mg DAILY PO 03/07/25 09:00 04/06/25 08:59 03/09/25 09:14 20 MG Furosemide (LASix 20MG VIAL) 20 mg DAILY10 IV 03/07/25 10:00 03/07/25 13:15 DC Glucagon (Glucagon 1mg Kit) 1 mg AD PRN IM HYPOGLYCEMIA PROTOCOL 03/07/25 00:00 04/06/25 00:00 Glucagon (Glucagon 1mg Kit) 1 mg AD PRN IM HYPOGLYCEMIA PROTOCOL 03/07/25 11:30 03/07/25 11:15 DC Hydralazine HCl (APRESOLine 20MG INJ) 10 mg Q6H PRN IV For:SBP above 160;DBP above 90 03/07/25 00:00 04/06/25 00:00 Insulin Human Regular (humuLIN R 100 UNIT/ML 3ML) INSULIN SLIDING SCAL... ACHS SQ 03/07/25 07:30 04/06/25 07:29 03/08/25 21:11 2 UNIT Magnesium Sulfate 50 ml @ 0 mls/hr PROTOCOL PRN IV OTHER [SEE ORDER COMMENTS] 03/07/25 00:00 04/06/25 00:00 Metoprolol Succinate (TopROL XL) 25 mg DAILY PO 03/07/25 09:00 04/06/25 08:59 03/09/25 09:11 25 MG Nitroglycerin (Nitrostat) 0.4 mg PROTOCOL PRN SL CHEST PAIN 03/07/25 00:00 04/06/25 00:00 Ondansetron HCl (zoFRAN 4MG INJ) 4 mg Q6H PRN IV NAUSEA/VOMITING 03/07/25 00:00 04/06/25 00:00 Potassium Chloride 100 ml @ 100 mls/hr AD PRN IV POTASSIUM PROTOCOL 03/07/25 00:00 04/06/25 00:00 Potassium Chloride (K-Dur/Klor-Con 20meq) 20 meq AD PRN PO POTASSIUM PROTOCOL 03/07/25 00:00 04/06/25 00:00 Potassium Chloride (KCl 10% Elixir 20meq/15ml) 20 meq AD PRN PO POTASSIUM PROTOCOL 03/07/25 00:00 04/06/25 00:00 Sacubitril/ Valsartan (Entresto 24 Mg-26 Mg Tablet) 1 each BID PO 03/07/25 09:00 04/06/25 08:59 03/09/25 09:09 1 EACH Tramadol HCl (UltRAM) 50 mg Q6H PO 03/09/25 10:00 03/14/25 09:59 DIAGNOSTICS / RADIOLOGY: [ ] ASSESSMENT: Chest pain rule out ACS POA 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 Chronic renal insufficiency POA Coronary artery disease with CABG x3 and cardiac stent x4 POA AICD status POA Uncontrolled diabetes POA Morbid obesity POA Hypertension POA Hyperlipidemia POA Obstructive sleep apnea on CPAP at home POA PLAN: s/p PTCA/PCI Mid Left Circumflex and Mid 2nd Obtuse Marginal Branch of the Left Circumflex by Dr Baldev Escobedo on 03/07/25 Chest pain rule out ACS POA 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 * Admit in Telemetry * Continue with a heart healthy diet *Continue with Atorvastatin 20mg, Sacubitril/Valsatan 24/26mg, Metoprolol 25mg *Patient requires Aspirin 81mg daily, Plavix 75mg daily for at least 6-12months in addition to high intensity statin. *Plan for discharge in 24 hours if patient remains hemodynamically stable. Chronic renal insufficiency POA *Strict monitoring of intake and output *Daily weights *Discontinue all nephrotoxic agents *Monitor electrolytes and replace as needed *Goal urine output of 30 ml/h or 0.5ml/kg/hr *Medications to be dosed according to renal function *Avoid the use of contrast if possible. Uncontrolled diabetes POA *Maintain blood glucose between 100-180 at all times *Insulin sliding scale for blood glucose management *Hyperglycemia and hypoglycemia protocols in place Hypertension POA Hyperlipidemia POA *Follow hemodynamics. *Vital signs per facility protocol Obstructive sleep apnea on CPAP at home POA Morbid obesity POA Famotidine 20mg PO ATTESTATION BY PHYSICIAN I have seen and examined the patient. I reviewed the documentation, medical decision making, and treatment plan as noted by the resident provider above. I agree with the findings and plan of care. Manoj Klein MD OBI,CHANG Sevilla MD Mar 09, 2025 10:03
[2025-03-09] MEDS: traMADol HCL 50 MG TABLET PO SCH (11:02)
--- NOTE | 2025-03-09 12:53 | DS ---
Discharge Summary Hospital Course Summary: Patient Information: *Name:Aminah Karimi *Date of :57 *Admission Date:03/06/25 *Discharge Date: 03/09/25 Attending Physician: Dr Manoj Klein Discharge Diagnosis: Severe multivessel CAD/ Ischemic cardiomyopathy Course in Hospital: . 69-year-old male with past medical history of Diabetes,C HF, Chronic obstructive pulmonary disease, obstructive sleep apnea on CPAP at home, coronary artery disease and hyperlipidemia who presents to the ED for complaints of right sided chest pain, shortness of breaths and dizziness which started today. Patient reports he has been having these symptoms since this week and worsened so he decided to come in for evaluation. EKG done in the ED showed sinus bradycardia with first degree AV block with occasional PVC. Anterolateral infarct consider inferior ischemia and ST T wave abnormalities. Patient was immediately taken to the OR for a PTCA/PCI of the mid left circumflex and PTCA/PCI of the mid second obtuse marginal branch of the Left Circumflex Coronary Artery by Dr Baldev Escobedo on 03/07/25. Patient tolerated the procedure very well. Was able to ambulate around the unit with the help of PT. Plan was made for discharge and the patient was instructed to follow up with PCP and pin pusher in 2-3 days post discharge for further evaluations and management. Verbalized understanding. 1530: At 1522 patient spiked a temperature of 100.4. Tried to explain to patient that he would have to stay overnight for observation, however patient refused stating that he feels just fine and just wants to go home. Instructed the nurse to administer some Tylenol in order to bring the temperature down before discharge. Verbalized understanding of instructions. Will send Augmentin to patient's pharmacy of choice. Discharged to: Home Condition on Discharge: Stable News Writer(s): Cardiology ( Dr Baldev Escobedo) Procedure(s): PTCA/PCI Mid Left Circumflex and Mid 2nd Obtuse Marginal Branch of the Left Circumflex Assessment/Plan: ASSESSMENT: Chest pain rule out ACS POA 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 Chronic renal insufficiency POA Coronary artery disease with CABG x3 and cardiac stent x4 POA AICD status POA Uncontrolled diabetes POA Morbid obesity POA Hypertension POA Hyperlipidemia POA Obstructive sleep apnea on CPAP at home POA PLAN: s/p PTCA/PCI Mid Left Circumflex and Mid 2nd Obtuse Marginal Branch of the Left Circumflex by Dr Baldev Escobedo on 03/07/25 Chest pain rule out ACS POA 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 * Admit in Telemetry * Continue with a heart healthy diet *Continue with Atorvastatin 20mg, Sacubitril/Valsatan 24/26mg, Metoprolol 25mg *Patient requires Aspirin 81mg daily, Plavix 75mg daily for at least 6-12months in addition to high intensity statin. *Plan for discharge in 24 hours if patient remains hemodynamically stable. Chronic renal insufficiency POA *Strict monitoring of intake and output *Daily weights *Discontinue all nephrotoxic agents *Monitor electrolytes and replace as needed *Goal urine output of 30 ml/h or 0.5ml/kg/hr *Medications to be dosed according to renal function *Avoid the use of contrast if possible. Uncontrolled diabetes POA *Maintain blood glucose between 100-180 at all times *Insulin sliding scale for blood glucose management *Hyperglycemia and hypoglycemia protocols in place Hypertension POA Hyperlipidemia POA *Follow hemodynamics. *Vital signs per facility protocol Obstructive sleep apnea on CPAP at home POA Morbid obesity POA Famotidine 20mg PO Discharge Instructions: Discharge Instructions: *Follow up with your primary care physician in 2 - 3 days after discharge. *Continue all medications as prescribed. Do not discontinue or change dosages without consulting your PCP. *Gradually resume normal activities as tolerated. *Continue a balanced diet . Reduce salt intake to help manage BP. *Seek immediate medical attention if you experience chest pain, SOB or severe headache. *Smoking cessation is strongly advised. Resources for quitting smoking are available upon request. Home Medications: Active Scripts Metoprolol Succinate (Toprol Xl) 25 Mg Tab.er.24h, 25 MG PO DAILY, #30 TAB Prov:ROSIO RUSHING MD 02/27/25 Reported Medications Insulin NPL/Insulin Lispro (Humalog Mix 75-25 Kwikpen) 100 Unit/Ml (75-25) Insuln.pen, 40 UNITS SQ BID 03/07/25 Clopidogrel Bisulfate (Clopidogrel) 75 Mg Tablet, 1 TAB PO DAILY 03/07/25 Omeprazole (Omeprazole) 20 Mg Capsule.dr, 1 CAP PO BID 03/07/25 Levocetirizine Dihydrochloride (Levocetirizine Dihydrochloride) 5 Mg Tablet, 1 TAB PO HS 03/07/25 Sacubitril/Valsartan (Entresto 24 mg-26 mg Tablet) 24 Mg-26 Mg Tablet, 1 EACH PO BID, TAB 03/05/25 Magnesium Oxide (Magnesium) 250 Mg Tablet, 250 MG PO DAILY, TAB 11/22/24 Ascorbic Acid (Vitamin C) 1,000 Mg Tablet, 1000 MG PO DAILY, TAB 11/22/24 Aspirin (Aspirin) 81 Mg Tab.chew, 81 MG PO DAILY, TAB.CHEW 11/22/24 Empagliflozin (Jardiance) 10 Mg Tablet, 10 MG PO DAILY, TAB 11/22/24 Atorvastatin Calcium (Atorvastatin Calcium) 20 Mg Tablet, 20 MG PO HS, TAB 11/22/24 Discontinued Reported Medications Benzonatate (Benzonatate) 200 Mg Capsule, 1 CAP PO TID 03/07/25 Theophylline Anhydrous (Theophylline) 400 Mg Tablet.er, 400 MG PO DAILY, TAB 11/22/24 Insulin NPL/Insulin Lispro (Humalog Mix 75/25) 100 Unit/Ml (75-25) Inj, 40 UNITS SQ BID, ML 11/22/24 Metoprolol Succinate (Metoprolol Succinate) 25 Mg Tab.er.24h, 1 TAB PO DAILY 03/05/25 Sertraline HCl (Sertraline HCl) 25 Mg Tablet, 1 TAB PO DAILY for 30 Days, #30 TAB 0 Refills 02/21/25 Duloxetine HCl (Duloxetine HCl) 30 Mg Capsule.dr, 1 CAP PO HS for 30 Days, #30 CAP 0 Refills 02/21/25 Levocetirizine Dihydrochloride (Levocetirizine Dihydrochloride) 5 Mg Tablet, 1 TAB PO HS for 30 Days, #30 TAB 0 Refills 02/21/25 Clopidogrel Bisulfate (Clopidogrel) 75 Mg Tablet, 75 MG PO DAILY, TAB 11/22/24 Omeprazole (Omeprazole) 20 Mg Tab.rap.dr, 20 MG PO BID 11/22/24 Sacubitril/Valsartan (Entresto 97 mg-103 mg Tablet) 97 Mg-103 Mg Tablet, 1 TAB PO BID for 30 Days, #60 TAB 0 Refills 11/22/24 Time spent arranging discharge: 31-60 minutes ATTESTATION BY PHYSICIAN I have seen and examined the patient. I reviewed the documentation, medical decision making, and treatment plan as noted by the resident provider above. I agree with the findings and plan of care. Manoj Klein MD OBI,CHANG Sevilla MD Mar 09, 2025 12:53
--- NOTE | 2025-03-09 14:22 | PN ---
[facility] CARDIOLOGY PROGRESS NOTE Date Patient Seen: Mar 09, 2025 Time of Visit: 14:19 Interval History: [No acute events overnight , the patient states that his functional capacity has greatly improved since the procedure, he is cooperating fully with PT. Renal function stable Cr at 1.8 Physical Examination: GENERAL: [No acute distress.] HEAD: [Normal with no signs of head trauma.] EYES: [PERRLA, EOMI, conjunctiva and sclera normal.] ENT: [Hearing grossly intact, normal oropharynx.] NECK: [Supple without JVD. There is no tenderness, lymphadenopathy, or masses. No thyromegaly. Normal carotid upstrokes without bruits.] LUNGS: [Clear breath sounds bilaterally. There are right basilar rales one third of the way up the chest. No wheezes, or rhonchi.] HEART: [Normal rate and rhythm. Normal S1 and S2 without mumurs, gallop or rub.] VASC: [Peripheral pulses +2 bilaterally.] ABD: [Bowel sounds normal, soft, nontender, no masses, no organomegaly. No audible bruits.] : [Not examined] LYMPH: [No lymphadenopathy noted.] EXT: [No clubbing, cyanosis or edema.] SKIN: [No rashes or lesions noted.] NEURO: [Awake, alert, and oriented x3. No focal sensory or strength deficits noted.] Laboratory: [ ] Hematology Labs: Test 03/09/25 04:58 Range/Units White Blood Count 13.7 H 4.8-10.8 K/uL Red Blood Count 4.46 L 4.50-6.20 MIL/uL Hemoglobin 13.0 L 14.0-18.0 g/dL Hematocrit 37.4 L 42-54 % Mean Corpuscular Volume 83.9 79-99 fL Mean Corpuscular Hemoglobin 29.1 27.0-33.0 pg Mean Corpuscular Hemoglobin Concent 34.8 32.0-36.0 g/dL Red Cell Distribution Width 16.3 H 11.0-15.5 % Platelet Count 138 130-400 K/uL Mean Platelet Volume 10.2 7.5-10.5 fL Immature Granulocyte % (Auto) 0.4 0-1 % Neutrophils (%) (Auto) 84.2 H 40.0-77.0 % Lymphocytes (%) (Auto) 8.1 L 21.0-51.0 % Monocytes (%) (Auto) 6.2 3.0-13.0 % Eosinophils (%) (Auto) 0.7 0.0-8.0 % Basophils (%) (Auto) 0.4 0.0-5.0 % Neutrophils # (Auto) 11.5 H 1.8-7.7 K/uL Lymphocytes # (Auto) 1.1 1.0-4.8 K/uL Monocytes # (Auto) 0.9 0.1-1.0 K/uL Eosinophils # (Auto) 0.10 0.00-0.70 K/uL Basophils # (Auto) 0.05 0.00-0.20 K/uL Absolute Immature Granulocyte (auto 0.05 0-1 K/uL Nucleated Red Blood Cells 0.0 0.0-0.19 % White Cell Morphology Comment See comments Chemistry Labs: Test 03/09/25 14:10 03/09/25 08:19 03/08/25 04:15 Range/Units Whole Blood Glucose 193 H 70-110 MG/DL Sodium Level 136 136-145 mmol/L Potassium Level 4.9 3.5-5.1 mmol/L Chloride Level 104 101-111 mmol/L Carbon Dioxide Level 21 21-32 mmol/L Blood Urea Nitrogen 42 H 7-18 mg/dL Creatinine 1.8 H 0.5-1.3 mg/dL Glomerular Filtration Rate Calc 40 >90 mL/min Random Glucose 168 H 70-105 mg/dL Total Calcium 8.6 8.5-10.1 mg/dL Magnesium Level 2.00 1.80-2.40 mg/dL Total Bilirubin 0.9 # 0.2-1.0 mg/dL Aspartate Amino Transf (AST/SGOT) 18 10-37 U/L Alanine Aminotransferase (ALT/SGPT) 30 12-78 U/L Alkaline Phosphatase 66 50-136 U/L Total Protein 7.0 6.0-8.3 g/dL Albumin 3.3 L 3.5-5.0 g/dL Diagnostics / Radiology: [Copy/Paste Echos/Imaging Report here] Impression and Plan: CAD s/p 3v CABG ( ALVARES - LAD, SVG- OM and SVG- RCA on 12/28/2023 [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 The patient underwent coronary angiogram yesterday : Status post successful Impella supported, IV L, PTCA/PCI of the mid left circumflex (3x26 mm tayler [place] drug-eluting stent, postdilated 3.5 mm) Status post successful Impella supported PTCA/PCI of the mid OM2 (2.25 by 38 mm tayler [place] drug-eluting stent) Since his procedure the patient states that his exertional dyspnea has greatly improved . Renal function stable Cr 1.8 Aggressive risk factor modification. Patient required DAPT (aspirin 81 mg q.day/Plavix 75 mg q.day) at times 6-12 months in addition to high-intensity statin therapy, Toprol 25 mg daily We recommend PT-OT . #Acute on chronic HFrEF: Advanced Ischemic cardiomyopathy. EF <20%, NYHA III, stage D Compensated and euvolemic on exam Check I's and O's and daily weights, fluid restrict to 1.5 L per day with a goal net-1-2 L per day We will optimize GDM T Entresto 24/26 mg every12 hours and Jardiance 10 mg daily , and Toprol 25 mg daily Further GDM T optimization will be done as an outpatient Low-sodium consumption/heart healthy diet Keep on sample collector/replace electrolytes as needed Thank you for this consult , cardiology will sign off at this time , the patient will follow up in clinic 1-2 weeks after discharge Baldev Escobedo MD ATTESTATION BY PHYSICIAN I have seen and examined the patient, reviewed the above documentation, participated in medical decision making, made necessary modifications, and agree with the treatment plan as documented by my mid-level provider above. MD DREAD Holt JAMES R MD Mar 09, 2025 14:22
[2025-03-09] MEDS ORDERED: AMOX-426 PO (15:56)
--- NOTE | 2025-03-09 17:56 | NUR ---
DISCHARGE D/C INSTRUCTIONS GIVEN TO PT VERBALIZED UNDERSTANDING. IV AND TELE PACK REMOVED. PT ESCORTED VIA WHEELCHAIR TO PRIVATE CAR IN SAME CONDITION.
== END 2025-03-09 18:00 | disposition home or self-care (01) | DRG 215 ==
LOC: EDH 20:15 → EDHIP 23:52 → 4DH 03-07 00:30 → 2BH 03-07 09:56 → 2AH 03-08 16:20
PROVIDERS: ADMIT Internal Medicine; ATTEND Internal Medicine
PROC: 02HA3RZ Insertion of Short-term External Heart Assist System into Heart, Percutaneous Approach (ICD-10-PCS; principal; 2025-03-07)
PROC: 5A0221D Assistance with Cardiac Output using Impeller Pump, Continuous (ICD-10-PCS; 2025-03-07)
PROC: 02F03ZZ Fragmentation in Coronary Artery, One Artery, Percutaneous Approach (ICD-10-PCS; 2025-03-07)
PROC: 027135Z Dilation of Coronary Artery, Two Arteries with Two Drug-eluting Intraluminal Devices, Percutaneous Approach (ICD-10-PCS; 2025-03-07)
PROC: B41F1ZZ Fluoroscopy of Right Lower Extremity Arteries using Low Osmolar Contrast (ICD-10-PCS; 2025-03-07)
PROC: 4A023N7 Measurement of Cardiac Sampling and Pressure, Left Heart, Percutaneous Approach (ICD-10-PCS; 2025-03-07)
PROC: B2111ZZ Fluoroscopy of Multiple Coronary Arteries using Low Osmolar Contrast (ICD-10-PCS; 2025-03-07)
DX: I25.5 Ischemic cardiomyopathy (principal); I50.43 Acute on chronic combined systolic (congestive) and diastolic (congestive) heart failure; I13.0 Hypertensive heart and chronic kidney disease with heart failure and stage 1 through stage 4 chronic kidney disease, or unspecified chronic kidney disease; I25.10 Atherosclerotic heart disease of native coronary artery without angina pectoris; N18.9 Chronic kidney disease, unspecified; E11.22 Type 2 diabetes mellitus with diabetic chronic kidney disease; I44.0 Atrioventricular block, first degree; I49.3 Ventricular premature depolarization; E66.01 Morbid (severe) obesity due to excess calories; G47.33 Obstructive sleep apnea (adult) (pediatric); J44.9 Chronic obstructive pulmonary disease, unspecified; Z95.1 Presence of aortocoronary bypass graft; Z95.5 Presence of coronary angioplasty implant and graft; Z95.810 Presence of automatic (implantable) cardiac defibrillator; Z79.02 Long term (current) use of antithrombotics/antiplatelets; Z79.82 Long term (current) use of aspirin; Z82.49 Family history of ischemic heart disease and other diseases of the circulatory system; Z83.3 Family history of diabetes mellitus; Z68.34 Body mass index [BMI] 34.0-34.9, adult; Z79.899 Other long term (current) drug therapy
CPT/HCPCS: 33990; 36415; 70450; 71045; 80048; 80053; 82550; 82948; 83735; 83880; 84484; 85025; 85347; 85610; 85651; 85730; 92972; 93005; 93452; 99156; 99157; 99285; C1760; C1761; C1769; C1874; C1894; C9607; C9608; G0378; J0461; J0583; J1644; J1815; J2250; J3010; J3490; Q9967; C1725; C1887; Q9965